=== PATIENT | female | born 1955 | race Caucasian/White ===

== ENCOUNTER 2018-03-10 09:34 | Emergency (ER) | payer MEDICARE, MEDICAID ==
[~2018-03-10] VITALS: Ht 172.7 cm; Wt 114.0 kg
[~2018-03-10 09:34] MED LIST: ACET-812 PO; ATOR20TA PO; BENZ1TAB7 PO; BUPR200T10 PO; CALC1TAB PO; CYCL-1 PO; DOCU100C40 PO; HYDR-569 PO; LIDO700A5 TOP; NAPR220T67 PO; NICO-687 TD; ONDA8TAB9 PO; OXYC-145 PO; PALI3TAB5 PO; QUET400T12 PO; UMEC1DIS PO
[2018-03-10 09:37] VITALS: BP 134/62
[2018-03-10] MEDS ORDERED: ketorolac trometh. 30mg/ml inj. IM ONE (10:00)
[2018-03-10] MEDS ORDERED: TRAM50TA2 PO (10:04)
[2018-03-10] MEDS ORDERED: GABA-530 PO (10:04)
== END 2018-03-10 10:16 | disposition home or self-care (01) ==
LOC: ER 09:34
DX: M54.5 Low back pain (principal); E78.00 Pure hypercholesterolemia, unspecified; I10 Essential (primary) hypertension; E11.9 Type 2 diabetes mellitus without complications; G89.29 Other chronic pain; Z60.2 Problems related to living alone; Z79.899 Other long term (current) drug therapy; Z88.8 Allergy status to other drugs, medicaments and biological substances
CPT/HCPCS: 96372; 99284; J1885

== ENCOUNTER 2018-03-20 13:32 | Emergency (ER) | payer MEDICARE, MEDICAID ==
[~2018-03-20] VITALS: Ht 172.7 cm; Wt 100.0 kg
[~2018-03-20 13:32] MED LIST changes: +GABA-530 PO; +TRAM50TA2 PO
[2018-03-20 13:41] VITALS: BP 136/81
[2018-03-20] MEDS ORDERED: GABA100C PO (15:16)
[2018-03-20] MEDS ORDERED: TRAM50TA2 PO (15:16)
== END 2018-03-20 15:25 | disposition home or self-care (01) ==
LOC: ER 13:33
DX: M54.5 Low back pain (principal); G89.29 Other chronic pain; E78.00 Pure hypercholesterolemia, unspecified; I10 Essential (primary) hypertension; E11.9 Type 2 diabetes mellitus without complications; Z86.73 Personal history of transient ischemic attack (TIA), and cerebral infarction without residual deficits; Z90.49 Acquired absence of other specified parts of digestive tract; Z60.2 Problems related to living alone; Z88.8 Allergy status to other drugs, medicaments and biological substances; Z88.5 Allergy status to narcotic agent; Z79.899 Other long term (current) drug therapy
CPT/HCPCS: 99283

== ENCOUNTER 2018-12-29 17:42 | Emergency (ER) | payer MEDICARE, MEDICAID ==
[~2018-12-29] VITALS: Ht 172.7 cm; Wt 110.5 kg
[~2018-12-29 17:42] MED LIST changes: +GABA100C PO; +HYDR-4383 PO; -HYDR-569 PO; -TRAM50TA2 PO
[2018-12-29 18:53] LABS: BASOPHILS % (AUTO) 0.2 % (0-1); EOSINOPHILS % (AUTO) 0.1 % (0-6); HEMOGLOBIN 12.5 g/dl (12.0-16.0); MEAN CORPUSCULAR HGB CONC 34.7 g/dL (33.0-36.5); MEAN CORPUSCULAR VOLUME 86.6 FL (78-98); MEAN PLATELET VOLUME 7.8 FL (7.4-10.4); MONOCYTES # (AUTO) 0.6 X10'3 (0-0.9); MONOCYTES % (AUTO) 5.9 % (2-12); NEUTROPHILS # (AUTO) 7.8 X10'3 (1.8-7.7); NEUTROPHILS % (AUTO) 82.8 % (42-75); PLATELET COUNT 274 X10'3 (140-440); RED BLOOD COUNT 4.16 X10'6 (4.20-5.60); RED CELL DISTRIBUTION WIDTH 15.2 % (11.5-14.5); WHITE BLOOD COUNT 9.4 X10'3 (4.5-11.0)
--- NOTE | 2018-12-29 19:34 | NUR ---
COMMUNITY MENTAL HEALTH SOCIAL WORKER FOR BED 1 NAME: AURELIANO NEFF PHONE # Addendum: 12/30/18 at 1252 by BOBBI SECONDARY PHONE # [phone]
[2018-12-29 19:51] LABS: URINE AMPHETAMINE SCREEN NEGATIVE (Neg); URINE BARBITUATE SCREEN NEGATIVE (Neg); URINE BENZODIAZEPINES SCREEN NEGATIVE (Neg); URINE CANNABINOID SCREEN NEGATIVE (Neg); URINE COCAINE SCREEN NEGATIVE (Neg); URINE METHADONE SCREEN NEGATIVE (Neg); URINE OPIATE SCREEN NEGATIVE (Neg); URINE PHENCYCLIDINE SCREEN NEGATIVE (Neg)
[2018-12-29 19:55] LABS: ALANINE AMINOTRANSFERASE 42 U/L (12-78); ALBUMIN 3.5 G/DL (3.4-5.0); ALKALINE PHOSPHATASE 83 IU/L (46-116); ANION GAP 13 (8-16); ASPARTATE AMINO TRANSFERASE 37 U/L (10-37); BILIRUBIN,TOTAL 0.5 MG/DL (0.1-1.0); BLOOD UREA NITROGEN 9 MG/DL (7-18); BUN/CREATININE RATIO 8.5 (6.6-38.0); CALCIUM 9.7 MG/DL (8.5-10.1); CHLORIDE 105 MMOL/L (99-107); CREATININE 1.06 MG/DL (0.40-0.90); ETHANOL < 0.010 GM/DL (0.0-0.010); GLUCOSE 141 MG/DL (70-104); POTASSIUM 3.5 MMOL/L (3.5-5.1); SODIUM 141 MMOL/L (135-145); TOTAL CARBON DIOXIDE 23.5 MMOL/L (24-32); eGFR 52 ML/MIN
[2018-12-29] MEDS ORDERED: LORazepam 2 mg/ml vial IM ONE ×2 (20:55)
--- NOTE | 2018-12-29 21:13 | NUR ---
Jael reyna in [facility] - 12/30/18 at 0004 by ONUR report given to javad landry
[2018-12-29 21:31] LABS: CLARITY,URINE CLEAR (Clear); COLOR,URINE YELLOW (Yellow); GLUCOSE, URINE NEGATIVE (Neg); KETONES,URINE NEGATIVE (Neg); LEUKOCYTE ESTERASE ,URINE NEGATIVE (Neg); NITRITES, URINE NEGATIVE (Neg); OCCULT BLOOD,URINE SMALL (Neg); PROTEIN,URINE NEGATIVE (Neg); UROBILINOGEN,URINE 0.2 E.U/dL (0.2-1.0)
[2018-12-29 21:34] LABS: UA COLLECTION TYPE STRAIGHT CATH
[2018-12-29 21:39] LABS: BACTERIA,URINE FEW /HPF (Neg); RBC,URINE 0-2 /HPF (0-2); SQUAMOUS EPITHELIAL CELL,UR FEW /LPF (FEW); WBC,URINE 0-4 /HPF (0-4)
[2018-12-29] MEDS ORDERED: haloperidol lactate 5mg/ml inj IM ONE (21:40)
--- NOTE | 2018-12-29 23:58 | NUR ---
PT MOVED FROM ED BED 1 TO ED BED H16 FOR CLOSER OBSERVATION. PT TO BE TAKEN TO OVERFLOW AND TELE-PSYCHED THERE.
--- NOTE | 2018-12-30 02:10 | NUR ---
SOC telepsych initiated.
--- NOTE | 2018-12-30 02:23 | NUR ---
Pt up from bed indicating she needed to go to the bathroom. She assisted as she does not appear steady on her feet. At about [address]% [address] way there, pt stated, "No, I don't have to go." She returned readily to bed. Additionally, pt appears to be responding to internal stimuli AEB her talking when none are present. Will continue to monitor.
--- NOTE | 2018-12-30 02:57 | NUR ---
Unsteadiness with slight lurching forward, lack of motor coordination and mild uncontrolled facial/tongue movement noted; appears neurological. Pt continues to be restless and is wide awake.
--- NOTE | 2018-12-30 03:39 | NUR ---
Discussed pt's dystonic type movements with Dr Patel; new order received for Izzy.
[2018-12-30] MEDS ORDERED: benztropine 1mg tablet PO ONE (03:40)
--- NOTE | 2018-12-30 04:40 | NUR ---
Pt status provided Dr Johnston, Psychiatrist SOC in preparation of psychosocial assessment.
--- NOTE | 2018-12-30 04:42 | NUR ---
Pt engaged in SOC telepsych assessment.
--- NOTE | 2018-12-30 05:15 | NUR ---
SOC Psychiatrist Dr Johnston f/u indicating she will be recommending pt undergo a neurological assessment d/t motor activity. Additionally Dr Johnston stated pt does not meet criteria for a 5150 hold at this time.
[2018-12-30] MEDS ORDERED: CYCL-394 PO (07:50)
[2018-12-30] MEDS ORDERED: ATOR20TA PO (07:50)
[2018-12-30] MEDS ORDERED: DOCU100C40 PO (07:50)
[2018-12-30] MEDS ORDERED: BUPR100T16 PO (07:50)
[2018-12-30] MEDS ORDERED: PER5325T PO (07:50)
[2018-12-30] MEDS ORDERED: BENZ1TAB7 PO (07:50)
[2018-12-30] MEDS ORDERED: UMEC1DIS (07:50)
[2018-12-30] MEDS ORDERED: GABA-530 PO (07:50)
[2018-12-30] MEDS ORDERED: PALI6TAB PO (07:50)
--- NOTE | 2018-12-30 07:57 | NUR ---
Patient up to bathroom, unsteady on feet, rocking as sitting on bed, lip smacking, exhibiting signs of possible tardive dyskinesia. NAD, waiting for breakfast.
[2018-12-30] MEDS ORDERED: oxyCODONE/APAP 5-325mg tablet PO PRN (08:30)
[2018-12-30] MEDS ORDERED: acetaminophen 325mg tablet PO PRN (08:30)
[2018-12-30] MEDS ORDERED: cyclobenzaprine 10mg tablet PO PRN (08:30)
[2018-12-30] MEDS ORDERED: ipratropium 0.5 MG/2.5ML nebule IH PRN (08:40)
[2018-12-30] MEDS ORDERED: albuterol 2.5 MG/3 ML nebule NEB PRN (08:40)
[2018-12-30] MEDS ORDERED: LORazepam 2 mg/ml vial IM ONE (10:00)
--- NOTE | 2018-12-30 10:00 | NUR ---
The patient has been awake and restless after eating breakfast. She was given IM medications and her regular morning meds. She is able to get up to bathroom and converse with nursing staff. She is responding at times to internal stimuli and admits to hearing voices. She is in no acute distress at this time.
[2018-12-30] MEDS ORDERED: PALIPERIDONE 3 MG TAB.ER.24 PO SCH (10:05)
[2018-12-30] MEDS: calcium carbonate/vitamin D3 tablet PO SCH ×2 (10:06→20:08)
[2018-12-30] MEDS: docusate sod 100mg capsule PO SCH ×2 (10:27→20:08)
[2018-12-30] MEDS: benztropine 1mg tablet PO SCH ×2 (10:27→20:08)
[2018-12-30] MEDS: gabapentin 100mg capsule PO SCH ×2 (10:27→16:50)
--- NOTE | 2018-12-30 11:20 | NUR ---
patient's caregiver here and was very reluctant to leave her bag at the nurse's station also the caregiver was aked to please leave her visitors id on her person to allow for identification; she held it in her hand
--- NOTE | 2018-12-30 11:31 | NUR ---
CALLED PHARMACY AND SPOKE TO ALEKSANDR: PATIENT DOES NOT HAVE MEDICATION STORED IN PHARMACY PATIENT SIGNED FOR RETURN OF PERSONAL BELONGINGS INCLUDING BEYER
--- NOTE | 2018-12-30 11:35 | NUR ---
caregiver up in front of nurses station: I asked her if she needed any help; she said "no" I asked her to please return to the patient's room because I needed to make a phone call regarding another patient. the caregiver did not return to the patient's room
--- NOTE | 2018-12-30 11:37 | NUR ---
ERROR: PATIENT IS NOT BEING DISCHARGED I CHECKED THE NURSES STATION WITH JULIANNE GARCIA: PATIENT HAS NO MEDICATION IN THE FACILITY JOSE WHITAKER TRIAGED THE PATIENT AND THE PATIENT ARRIVED VIA EMS WITH NO MEDICATION
--- NOTE | 2018-12-30 12:13 | NUR ---
PT'S AVIONICS ELECTRONICS TECHNICIAN, AURELIANO NEFF,, CAME TO VISIT PT. SPOKE WITH TIFFANI RN, RON RN AND CATHLEEN PCT REGARDING PT'S BAG OF MEDICATIONS; STATING THAT THEY ARE MISSING AND THAT SHE GAVE THE BAG TO THE [facility] EMT'S AT TIME OF TRANSPORT TO THE HOSPITAL. THIS PUBLISHING DIRECTOR RECEIVED THE PT IN ER1, NO "TOLBERT" BAG OF MEDICATIONS WAS SEEN UPON ARRIVAL OR WHEN EMT'S LEFT. TRIED TO EXPLAIN TO MS NEFF THAT THERE WAS NO BAG OF MEDICATIONS PRESENTED TO ME, THAT I ASKED THE PT IF SHE HAD A LIST OF HER MEDICATIONS AND ATTEMPTED TO VERIFY MEDICATIONS FROM PREVIOUS EMR BUT WAS UNABLE DUE TO PT NOT BEING ABLE TO TELL WHAT MEDICATIONS SHE IS ON. I EXPLAINED TO MS NEFF THAT IF I HAD RECEIVED A BAG OF MEDICATIONS, I WOULD HAVE LOGGED THEM AND TAKEN THEM TO THE PHARMACY. JULIANNE MG CALLED THE PHARMACY TO VERIFY IF THEY HAD RECEIVED A "TOLBERT" BAG OF MEDICATIONS FOR THE PT AND WAS TOLD THAT THEY HAD NOT. THE AMBULANCE [facility]OCKERS WERE CHECKED AND THERE WAS NO BAG OF MEDICATIONS WITH THE PT'S OTHER BELONGING. OVERFLOW WAS CHECKED AND NO BAG WAS PRESENT AND THERE WAS NO MENTION OF MEDICATION ON THE PT'S BELONGINGS LIST IN THE CHART. MS NEFF INSISTS THAT SHE PERSONALLY GAVE A BAG OF MEDICATIONS TO THE EMT'S, [facility] EMS WAS CALLED AND THERE HAVE NO RECOLLECTIONS OF A MEDICATION BAG GIVEN. PUBLISHING DIRECTOR REQUESTED MS NEFF'S CONTACT #'S AND STATED THAT WE WOULD CONTINUE TO SERCH FOR THE MEDICATION BAG AND WOULD CALL WHEN AND IF FOUND. MS NEFF BECAME VERY ANGRY, INSISTING THAT WE HAD THE MEDICATIONS AND STATING "YOU ARE GOING TO BE IN BIG TROUBLE."
[2018-12-30] MEDS ORDERED: buPROPion 100mg tablet PO SCH (12:30)
--- NOTE | 2018-12-30 15:26 | NUR ---
Patient restless and c/o chronic lower back pain 10/10 aching. [facility]ocet. [facility]
[2018-12-30] MEDS ORDERED: gabapentin 100mg capsule PO SCH (16:00)
--- NOTE | 2018-12-30 16:00 | NUR ---
Darrick from [facility] at bedside to evaluate for 5150 criteria.
--- NOTE | 2018-12-30 16:30 | NUR ---
Placed on a [address] [facility]. History reveals patient is Hepatitis C positive.
--- NOTE | 2018-12-30 17:23 | NUR ---
Patient settled down and rested after getting pain medication. No distress, calm and cooperative lying on bed.
--- NOTE | 2018-12-30 18:32 | NUR ---
Patient resting comfortably on hospital bed, is A&O x3 and DOYLE. She tells me she is anxious and feels crazy. She does not respect boundries and continues to cross the curtain into another patient's space, she is easily redirected. I will continue to monitor.
--- NOTE | 2018-12-30 19:23 | NUR ---
[facility] kareem and they will be accepting patient tonight. I gave msg to Dr. Haque for discharge.
[2018-12-30] MEDS ORDERED: benztropine 1mg tablet PO SCH (20:00)
[2018-12-30] MEDS ORDERED: docusate sod 100mg capsule PO SCH (20:00)
[2018-12-30] MEDS ORDERED: calcium carbonate/vitamin D3 tablet PO SCH (20:00)
--- NOTE | 2018-12-30 20:39 | NUR ---
Patient being taken to [facility]
[2018-12-30 20:42] VITALS: BP 126/70
[2018-12-30] MEDS ORDERED: atorvastatin 20mg tablet PO SCH (21:00)
[2018-12-30] MEDS ORDERED: QUET-1 PO (22:42)
[2018-12-30] MEDS ORDERED: lidocaine TD (22:46)
[2018-12-30] MEDS ORDERED: HYDR-3965 PO (22:52)
[2018-12-30] MEDS ORDERED: NAPR-56 PO (23:05)
[2018-12-30] MEDS ORDERED: NICO-687 TOP (23:08)
[2018-12-30] MEDS ORDERED: ONDA8TAB6 PO (23:11)
[2018-12-31] MEDS ORDERED: PALIPERIDONE 3 MG TAB.ER.24 PO SCH ×2 (08:00→10:04)
[2018-12-31] MEDS ORDERED: OMEP40CA37 PO (13:39)
[2018-12-31] MEDS ORDERED: PRAV80TA3 PO (13:39)
== END 2018-12-30 20:45 ==
LOC: ER 17:43
DX: R41.82 Altered mental status, unspecified (principal); F41.9 Anxiety disorder, unspecified; F32.9 Major depressive disorder, single episode, unspecified; R45.1 Restlessness and agitation; R41.0 Disorientation, unspecified; E78.00 Pure hypercholesterolemia, unspecified; I10 Essential (primary) hypertension; E11.9 Type 2 diabetes mellitus without complications; G89.29 Other chronic pain; Z86.73 Personal history of transient ischemic attack (TIA), and cerebral infarction without residual deficits; Z90.49 Acquired absence of other specified parts of digestive tract; Z60.2 Problems related to living alone; Z88.8 Allergy status to other drugs, medicaments and biological substances; Z79.899 Other long term (current) drug therapy
CPT/HCPCS: 36415; 70450; 80053; 80305; 80320; 81001; 84443; 85025; 93005; 96372; 99285; J1630; J2060; P9612

== ENCOUNTER 2018-12-30 20:00 | Inpatient (IN) | payer MEDICARE, MEDICAID | END 2019-01-14 11:50 | disposition home or self-care (01) | LOC: ADULT MH 20:00 | DX: F25.0 Schizoaffective disorder, bipolar type (principal); Z86.73 Personal history of transient ischemic attack (TIA), and cerebral infarction without residual deficits; F03.90 Unspecified dementia, unspecified severity, without behavioral disturbance, psychotic disturbance, mood disturbance, and anxiety; E78.5 Hyperlipidemia, unspecified ==

== ENCOUNTER 2020-03-08 11:23 | Emergency (ER) | payer MEDICARE, MEDICAID ==
[~2020-03-08] VITALS: Ht 172.7 cm; Wt 101.4 kg
[~2020-03-08 11:23] MED LIST changes: -ATOR20TA PO; +BENZ0.5T4 PO; -BENZ1TAB7 PO; +BUPR100T7 PO; -BUPR200T10 PO; -CALC1TAB PO; +CHLO473M2 MM; -CYCL-1 PO; +DOCU-329 PO; -DOCU100C40 PO; -GABA-530 PO; -GABA100C PO; +HYDR-3686 PO; -HYDR-4383 PO; -LIDO700A5 TOP; +MIRA25TA PO; +NAPR-56 PO; -NAPR220T67 PO; -NICO-687 TD; +NYSPWD TP; +OLAN2.5T28 PO; +OLAN5TAB29 PO; -ONDA8TAB9 PO; -OXYC-145 PO; -PALI3TAB5 PO; +PANT40TA4 PO; +POLY15DR31 RIGHTEYE; -QUET400T12 PO; +TRAM50TA2 PO; +TRAZ-256 PO
--- NOTE | 2020-03-08 12:08 | NUR ---
Pt. walked back to bed 24, gait steady.
[2020-03-08 12:12] LABS: BASOPHILS % (AUTO) 0.4 % (0-1); EOSINOPHILS # (AUTO) 0.1 X10'3 (0-0.9); EOSINOPHILS % (AUTO) 0.8 % (0-6); HEMATOCRIT 37.7 % (35.0-45.0); HEMOGLOBIN 12.4 g/dl (12.0-16.0); LYMPHOCYTES # (AUTO) 1.1 X10'3 (1.1-4.8); LYMPHOCYTES % (AUTO) 14.3 % (21-51); MEAN CORPUSCULAR HEMOGLOBIN 28.8 PG (27.0-31.0); MEAN CORPUSCULAR VOLUME 87.1 FL (78-98); MEAN PLATELET VOLUME 7.2 FL (7.4-10.4); MONOCYTES # (AUTO) 0.8 X10'3 (0-0.9); MONOCYTES % (AUTO) 9.4 % (2-12); NEUTROPHILS % (AUTO) 75.1 % (42-75); PLATELET COUNT 201 X10'3 (140-440); RED BLOOD COUNT 4.32 X10'6 (4.20-5.60); RED CELL DISTRIBUTION WIDTH 14.2 % (11.5-14.5)
[2020-03-08 12:28] LABS: ALANINE AMINOTRANSFERASE 16 U/L (12-78); ALBUMIN 2.9 G/DL (3.4-5.0); ALBUMIN/GLOBULIN RATIO 0.9 (1.1-1.5); ALKALINE PHOSPHATASE 60 IU/L (46-116); ANION GAP 8 (8-16); ASPARTATE AMINO TRANSFERASE 23 U/L (10-37); BILIRUBIN,TOTAL 0.4 MG/DL (0.1-1.0); BLOOD UREA NITROGEN 11 MG/DL (7-18); BUN/CREATININE RATIO 11.7 (6.6-38.0); CALCIUM 8.2 MG/DL (8.5-10.1); CHLORIDE 104 MMOL/L (99-107); CREATININE 0.94 MG/DL (0.40-0.90); GLUCOSE 127 MG/DL (70-104); POTASSIUM 3.6 MMOL/L (3.5-5.1); SODIUM 138 MMOL/L (135-145); TOTAL CARBON DIOXIDE 25.6 MMOL/L (24-32); TOTAL PROTEIN 6.2 G/DL (6.4-8.2); eGFR 60 ML/MIN
[2020-03-08 12:36] LABS: ETHANOL < 0.010 GM/DL (0.0-0.010)
--- NOTE | 2020-03-08 13:34 | NUR ---
Dietary orders input per verbal order from [place] [facility]; meal request faxed.
[2020-03-08] MEDS ORDERED: OLAN5TAB29 PO (14:45)
[2020-03-08] MEDS ORDERED: HYDR-3686 PO (14:45)
[2020-03-08] MEDS ORDERED: TRAZ-256 PO ×2 (14:45→17:32)
[2020-03-08] MEDS ORDERED: NAPR-56 PO ×2 (14:45→17:32)
[2020-03-08] MEDS ORDERED: DOCU-329 PO (14:45)
[2020-03-08] MEDS ORDERED: MIRA25TA PO (14:45)
[2020-03-08] MEDS ORDERED: TRAM50TA2 PO ×2 (14:45→17:32)
[2020-03-08] MEDS ORDERED: PANT40TA4 PO (14:45)
[2020-03-08] MEDS ORDERED: BENZ0.5T4 PO ×2 (14:45→17:23)
[2020-03-08] MEDS ORDERED: OLAN2.5T28 PO ×2 (14:45)
[2020-03-08] MEDS ORDERED: BUPR100T7 PO (14:45)
--- NOTE | 2020-03-08 15:31 | NUR ---
Patient up to bathroom, urine sent to lab. Patient is calm and cooperative.
[2020-03-08 15:51] LABS: CLARITY,URINE SLIGHTLY CLOUDY (Clear); COLOR,URINE STRAW (Yellow); GLUCOSE, URINE NEGATIVE (Neg); KETONES,URINE NEGATIVE (Neg); LEUKOCYTE ESTERASE ,URINE NEGATIVE (Neg); NITRITES, URINE NEGATIVE (Neg); OCCULT BLOOD,URINE MODERATE (Neg); PROTEIN,URINE NEGATIVE (Neg); UA COLLECTION TYPE VOIDED; UROBILINOGEN,URINE 0.2 E.U/dL (0.2-1.0)
[2020-03-08 15:53] LABS: URINE AMPHETAMINE SCREEN NEGATIVE (Neg); URINE BARBITUATE SCREEN NEGATIVE (Neg); URINE BENZODIAZEPINES SCREEN NEGATIVE (Neg); URINE CANNABINOID SCREEN NEGATIVE (Neg); URINE COCAINE SCREEN NEGATIVE (Neg); URINE METHADONE SCREEN NEGATIVE (Neg); URINE OPIATE SCREEN NEGATIVE (Neg); URINE PHENCYCLIDINE SCREEN NEGATIVE (Neg)
[2020-03-08 16:01] LABS: BACTERIA,URINE FEW /HPF (Neg); RBC,URINE 0-2 /HPF (0-2); SQUAMOUS EPITHELIAL CELL,UR MODERATE /LPF (FEW); WBC,URINE 0-4 /HPF (0-4)
[2020-03-08 16:22] VITALS: BP 119/62
[2020-03-08] MEDS ORDERED: myrbetriq PO (17:23)
[2020-03-08] MEDS ORDERED: BUPR100T6 PO (17:23)
[2020-03-08] MEDS ORDERED: BUPROPION PO (17:23)
[2020-03-08] MEDS ORDERED: DOCU250C4 PO (17:23)
[2020-03-08] MEDS ORDERED: olanzapine PO ×2 (17:32)
[2020-03-08] MEDS ORDERED: OLAN5TAB5 PO (17:32)
[2020-03-08] MEDS ORDERED: PANT-47 PO (17:32)
== END 2020-03-08 16:26 ==
LOC: ER 11:23
DX: F32.9 Major depressive disorder, single episode, unspecified (principal); E78.00 Pure hypercholesterolemia, unspecified; Z90.49 Acquired absence of other specified parts of digestive tract; Z60.2 Problems related to living alone; Z90.89 Acquired absence of other organs; Z98.890 Other specified postprocedural states; Z88.8 Allergy status to other drugs, medicaments and biological substances; Z79.899 Other long term (current) drug therapy
CPT/HCPCS: 36415; 80053; 80305; 80320; 81001; 84443; 85025; 99285

== ENCOUNTER 2020-05-02 12:54 | Emergency (ER) | payer MEDICARE, MEDICAID ==
[~2020-05-02] VITALS: Ht 172.7 cm; Wt 110.5 kg
[~2020-05-02 12:54] MED LIST changes: +BUPR100T6 PO; +BUPROPION PO; -CHLO473M2 MM; -DOCU-329 PO; +DOCU250C4 PO; -NYSPWD TP; +OLAN5TAB5 PO; +PANT-47 PO; -POLY15DR31 RIGHTEYE; +myrbetriq PO; +olanzapine PO
[2020-05-02 12:59] VITALS: BP 130/86
[2020-05-02 14:03] LABS: CLARITY,URINE CLOUDY (Clear); COLOR,URINE YELLOW (Yellow); GLUCOSE, URINE NEGATIVE (Neg); KETONES,URINE NEGATIVE (Neg); LEUKOCYTE ESTERASE ,URINE LARGE (Neg); NITRITES, URINE POSITIVE (Neg); OCCULT BLOOD,URINE SMALL (Neg); PH,URINE 6.5 (4.8-8.0); PROTEIN,URINE NEGATIVE (Neg); UROBILINOGEN,URINE 0.2 E.U/dL (0.2-1.0)
[2020-05-02 14:09] LABS: UA COLLECTION TYPE CLN CATCH MIDSTREAM
[2020-05-02 14:10] LABS: MUCUS STRANDS NONE SEEN /LPF (Neg); SQUAMOUS EPITHELIAL CELL,UR FEW /LPF (FEW)
[2020-05-02 14:11] LABS: BACTERIA,URINE 4+ /HPF (Neg); WBC,URINE TNTC /HPF (0-4)
[2020-05-02] MEDS ORDERED: CEFD300C3 PO (14:21)
--- NOTE | 2020-05-02 14:29 | NUR ---
exam done for yeast infection by Dr Rene
[2020-05-02] MEDS ORDERED: NYST15PO4 TOP (14:31)
[2020-05-03] MEDS ORDERED: ATOR10TA87 PO (19:27)
== END 2020-05-02 14:33 | disposition home or self-care (01) ==
LOC: ER 12:55
DX: N39.0 Urinary tract infection, site not specified (principal); B37.2 Candidiasis of skin and nail; E78.00 Pure hypercholesterolemia, unspecified; F32.9 Major depressive disorder, single episode, unspecified; Z90.89 Acquired absence of other organs; Z98.890 Other specified postprocedural states; Z79.899 Other long term (current) drug therapy
CPT/HCPCS: 81001; 87077; 87088; 87186; 99283

== ENCOUNTER 2020-05-03 17:43 | Emergency (ER) | payer MEDICARE, MEDICAID ==
[~2020-05-03] VITALS: Ht 175.3 cm; Wt 110.5 kg
[~2020-05-03 17:43] MED LIST changes: +CEFD300C3 PO; +NYST15PO4 TOP
[2020-05-03 18:48] LABS: BASOPHILS % (AUTO) 0.5 % (0-1); EOSINOPHILS % (AUTO) 0.3 % (0-6); HEMATOCRIT 39.8 % (35.0-45.0); HEMOGLOBIN 13.2 g/dl (12.0-16.0); LYMPHOCYTES # (AUTO) 1.3 X10'3 (1.1-4.8); LYMPHOCYTES % (AUTO) 18.7 % (21-51); MEAN CORPUSCULAR HEMOGLOBIN 29.5 PG (27.0-31.0); MEAN CORPUSCULAR HGB CONC 33.3 g/dL (33.0-36.5); MEAN CORPUSCULAR VOLUME 88.6 FL (78-98); MEAN PLATELET VOLUME 7.4 FL (7.4-10.4); MONOCYTES # (AUTO) 0.7 X10'3 (0-0.9); MONOCYTES % (AUTO) 9.8 % (2-12); NEUTROPHILS # (AUTO) 4.7 X10'3 (1.8-7.7); NEUTROPHILS % (AUTO) 70.7 % (42-75); PLATELET COUNT 199 X10'3 (140-440); RED BLOOD COUNT 4.49 X10'6 (4.20-5.60); RED CELL DISTRIBUTION WIDTH 14.8 % (11.5-14.5); WHITE BLOOD COUNT 6.7 X10'3 (4.5-11.0)
[2020-05-03 18:58] LABS: CLARITY,URINE SLIGHTLY CLOUDY (Clear); COLOR,URINE YELLOW (Yellow); GLUCOSE, URINE NEGATIVE (Neg); KETONES,URINE NEGATIVE (Neg); LEUKOCYTE ESTERASE ,URINE MODERATE (Neg); NITRITES, URINE NEGATIVE (Neg); OCCULT BLOOD,URINE SMALL (Neg); PH,URINE 5.5 (4.8-8.0); PROTEIN,URINE NEGATIVE (Neg); UROBILINOGEN,URINE 0.2 E.U/dL (0.2-1.0)
[2020-05-03 19:02] LABS: UA COLLECTION TYPE CLN CATCH MIDSTREAM
[2020-05-03 19:04] LABS: BACTERIA,URINE FEW /HPF (Neg); RBC,URINE NONE SEEN /HPF (0-2); SQUAMOUS EPITHELIAL CELL,UR FEW /LPF (FEW)
[2020-05-03 19:06] LABS: ALANINE AMINOTRANSFERASE 21 U/L (12-78); ALBUMIN 3.7 G/DL (3.4-5.0); ALBUMIN/GLOBULIN RATIO 1.1 (1.1-1.5); ALKALINE PHOSPHATASE 76 IU/L (46-116); ANION GAP 11 (8-16); ASPARTATE AMINO TRANSFERASE 14 U/L (10-37); BILIRUBIN,TOTAL 0.6 MG/DL (0.1-1.0); BLOOD UREA NITROGEN 9 MG/DL (7-18); BUN/CREATININE RATIO 9.3 (6.6-38.0); CALCIUM 8.6 MG/DL (8.5-10.1); CHLORIDE 104 MMOL/L (99-107); CREATININE 0.97 MG/DL (0.40-0.90); GLUCOSE 86 MG/DL (70-104); POTASSIUM 3.8 MMOL/L (3.5-5.1); SODIUM 141 MMOL/L (135-145); TOTAL CARBON DIOXIDE 26.1 MMOL/L (24-32); eGFR 57 ML/MIN
[2020-05-03 19:06] LABS: URINE AMPHETAMINE SCREEN NEGATIVE (Neg); URINE BARBITUATE SCREEN NEGATIVE (Neg); URINE BENZODIAZEPINES SCREEN NEGATIVE (Neg); URINE CANNABINOID SCREEN NEGATIVE (Neg); URINE COCAINE SCREEN NEGATIVE (Neg); URINE METHADONE SCREEN NEGATIVE (Neg); URINE OPIATE SCREEN NEGATIVE (Neg); URINE PHENCYCLIDINE SCREEN NEGATIVE (Neg)
[2020-05-03 19:15] LABS: ETHANOL < 0.010 GM/DL (0.0-0.010)
[2020-05-03] MEDS ORDERED: ATOR10TA87 PO (19:27)
[2020-05-03] MEDS: sulfamethoxazole/trimethoprim DS (800/160mg) tablet PO SCH ×2 (19:36→21:52)
--- NOTE | 2020-05-03 19:46 | NUR ---
Patient brought from [facility] ER. Patient ambulatory with walker. Patient states she is upset today because she had to let her it solutions architect go "because she was drunk." Patient then tells this typewriter ribbon winder that she has to go to the bathroom to void. Patient started to ambulate, she was reminded to go back and get her walker. Patient did comply. Patients gait was normal without the walker, no signs of pain.
--- NOTE | 2020-05-03 20:30 | NUR ---
pt packet faxed to [facility]
[2020-05-03] MEDS ORDERED: phenazopyridine 100mg tablet PO ONE ×2 (21:30→21:40)
--- NOTE | 2020-05-03 21:30 | NUR ---
Patient frequently ambulates to bathroom to void in small amounts.
[2020-05-03] MEDS ORDERED: acetaminophen 325mg tablet PO ONE (21:35)
--- NOTE | 2020-05-03 22:12 | NUR ---
Pyridium and APAP given for bladder and UTI pain. Patient is frequently up to the commode to void small amounts. Burning is present with urination. In addition patient was given her Deptra DS.
[2020-05-03] MEDS ORDERED: OLANZapine 2.5MG tablet PO SCH (22:35)
[2020-05-03] MEDS ORDERED: traZODone 50mg tablet PO ONE (22:35)
[2020-05-03] MEDS ORDERED: traZODone 50mg tablet PO SCH (22:35)
[2020-05-03] MEDS ORDERED: OLANZapine 2.5MG tablet PO ONE (22:35)
--- NOTE | 2020-05-04 00:51 | NUR ---
pt up out of bed to bathroom via rollar walker. steady gait . [facility] as patient has be ambulating to the bathroom frequently.
--- NOTE | 2020-05-04 01:10 | NUR ---
PT VOIDED 150 ML URINE SLIGHTY REDISH -
--- NOTE | 2020-05-04 01:53 | NUR ---
Patient up to bathroom to void. Patient slept for approximately 30 minutes prior to this. Patient ambulates with use of walker, normal gait.
--- NOTE | 2020-05-04 02:45 | NUR ---
Patient is sleeping quietly, low fowlers in bed. In view from nursing station.
--- NOTE | 2020-05-04 04:39 | NUR ---
Patient is up to void in bathroom, she had soiled her scrub bottom with urine. Patient was given clean scrubs and bedding.
--- NOTE | 2020-05-04 05:59 | NUR ---
Patient is awake, up to bathroom to void once again. She ambulates to bed without problem.
--- NOTE | 2020-05-04 06:30 | NUR ---
PT IS RESTING
[2020-05-04 07:00] VITALS: BP 116/77
[2020-05-04] MEDS ORDERED: naproxen 500mg tablet PO SCH (07:30)
--- NOTE | 2020-05-04 07:30 | NUR ---
PT IS RESTING
[2020-05-04] MEDS ORDERED: phenazopyridine 100mg tablet PO SCH (08:00)
[2020-05-04] MEDS ORDERED: pantoprazole 40mg Tablet.DR PO SCH (08:00)
[2020-05-04] MEDS ORDERED: phenazopyridine 100mg tablet PO ONE (08:00)
[2020-05-04] MEDS ORDERED: buPROPion SR 100mg tab PO SCH (08:00)
[2020-05-04] MEDS ORDERED: benztropine 1mg tablet PO SCH (08:00)
[2020-05-04] MEDS ORDERED: atorvastatin 10mg tablet PO SCH (08:00)
[2020-05-04] MEDS: sulfamethoxazole/trimethoprim DS (800/160mg) tablet PO SCH (08:06)
--- NOTE | 2020-05-04 08:30 | NUR ---
PT IS RESTING
--- NOTE | 2020-05-04 09:37 | NUR ---
PT IS RESTING
[2020-05-04] MEDS ORDERED: SULF1TAB49 PO (10:54)
[2020-05-04] MEDS ORDERED: traZODone 50mg tablet PO SCH (21:00)
[2020-05-04] MEDS ORDERED: OLANZAPINE 5 MG TABLET PO SCH (21:00)
== END 2020-05-04 11:29 | disposition home or self-care (01) ==
LOC: ER 17:43
DX: F32.9 Major depressive disorder, single episode, unspecified (principal); R45.851 Suicidal ideations; N39.0 Urinary tract infection, site not specified; E78.00 Pure hypercholesterolemia, unspecified; Z87.440 Personal history of urinary (tract) infections; Z90.89 Acquired absence of other organs; Z98.890 Other specified postprocedural states; Z60.2 Problems related to living alone; Z88.8 Allergy status to other drugs, medicaments and biological substances; Z79.899 Other long term (current) drug therapy
CPT/HCPCS: 36415; 80053; 80305; 80320; 81001; 84443; 85025; 99284

== ENCOUNTER 2020-05-06 08:12 | Emergency (ER) | payer MEDICARE, MEDICAID ==
[~2020-05-06] VITALS: Ht 172.7 cm; Wt 110.0 kg
[~2020-05-06 08:12] MED LIST changes: -ACET-812 PO; +ATOR10TA87 PO; -BUPR100T7 PO; -BUPROPION PO; -CEFD300C3 PO; -DOCU250C4 PO; -HYDR-3686 PO; -MIRA25TA PO; -NYST15PO4 TOP; -OLAN2.5T28 PO; -OLAN5TAB29 PO; -PANT40TA4 PO; +SULF1TAB49 PO; -TRAM50TA2 PO; -UMEC1DIS PO; -myrbetriq PO; -olanzapine PO
--- NOTE | 2020-05-06 08:13 | NUR ---
patient placed on cardiac rn.
--- NOTE | 2020-05-06 08:38 | NUR ---
Called poison control spoke with Cindy,recommending: asa,alcohol,tylenol,cmp level and to watch for agitation,hyperthermia,activated charcoal if becomes sleepy.Will inform Dr. Bhakta.
--- NOTE | 2020-05-06 08:43 | NUR ---
Dr. Bhakta aware about poison control recommendations.
[2020-05-06 12:46] VITALS: BP 137/77
== END 2020-05-06 12:48 | disposition home or self-care (01) ==
LOC: ER 08:13
DX: T14.91XA Suicide attempt, initial encounter (principal); F32.9 Major depressive disorder, single episode, unspecified; E78.00 Pure hypercholesterolemia, unspecified; R42 Dizziness and giddiness; Z90.89 Acquired absence of other organs; Z98.890 Other specified postprocedural states; Z79.899 Other long term (current) drug therapy
CPT/HCPCS: 93005; 99284

== ENCOUNTER 2020-05-14 16:32 | Emergency (ER) | payer MEDICARE, MEDICAID ==
[~2020-05-14] VITALS: Ht 172.7 cm; Wt 82.0 kg
[~2020-05-14 16:32] MED LIST changes: -SULF1TAB49 PO
--- NOTE | 2020-05-14 17:28 | NUR ---
pt was brought in to er by sister she asked her sister to bring her in. she said she started hearing voices this morning she has pych history but this is the first time hearing voices says it is just a jumbled mess and can not make anything out but says it sound religus. she also says she is having suicidal thougth and if she would try it would by by taking pills. she is calm and following directions at this time
--- NOTE | 2020-05-14 19:00 | NUR ---
PT GAVE URINE, SENT TO LAB. BELONGINGS INVENTORIED, MED REC COMPLETED
[2020-05-14 19:37] LABS: BASOPHILS % (AUTO) 0.5 % (0-1); EOSINOPHILS % (AUTO) 0.4 % (0-6); HEMATOCRIT 39.5 % (35.0-45.0); HEMOGLOBIN 13.3 g/dl (12.0-16.0); LYMPHOCYTES # (AUTO) 1.8 X10'3 (1.1-4.8); MEAN CORPUSCULAR HEMOGLOBIN 30.1 PG (27.0-31.0); MEAN CORPUSCULAR HGB CONC 33.7 g/dL (33.0-36.5); MEAN CORPUSCULAR VOLUME 89.2 FL (78-98); MEAN PLATELET VOLUME 7.4 FL (7.4-10.4); MONOCYTES # (AUTO) 0.5 X10'3 (0-0.9); MONOCYTES % (AUTO) 6.7 % (2-12); NEUTROPHILS # (AUTO) 5.2 X10'3 (1.8-7.7); NEUTROPHILS % (AUTO) 68.4 % (42-75); PLATELET COUNT 213 X10'3 (140-440); RED BLOOD COUNT 4.43 X10'6 (4.20-5.60); WHITE BLOOD COUNT 7.6 X10'3 (4.5-11.0)
[2020-05-14 19:49] LABS: URINE AMPHETAMINE SCREEN NEGATIVE (Neg); URINE BARBITUATE SCREEN NEGATIVE (Neg); URINE BENZODIAZEPINES SCREEN NEGATIVE (Neg); URINE CANNABINOID SCREEN NEGATIVE (Neg); URINE COCAINE SCREEN NEGATIVE (Neg); URINE METHADONE SCREEN NEGATIVE (Neg); URINE OPIATE SCREEN NEGATIVE (Neg); URINE PHENCYCLIDINE SCREEN NEGATIVE (Neg)
[2020-05-14 19:50] LABS: ALANINE AMINOTRANSFERASE 19 U/L (12-78); ALBUMIN 3.9 G/DL (3.4-5.0); ALBUMIN/GLOBULIN RATIO 1.2 (1.1-1.5); ALKALINE PHOSPHATASE 71 IU/L (46-116); ANION GAP 2 (8-16); ASPARTATE AMINO TRANSFERASE 10 U/L (10-37); BILIRUBIN,TOTAL 0.4 MG/DL (0.1-1.0); BLOOD UREA NITROGEN 13 MG/DL (7-18); CALCIUM 9.2 MG/DL (8.5-10.1); CHLORIDE 105 MMOL/L (99-107); GLUCOSE 97 MG/DL (70-104); POTASSIUM 3.9 MMOL/L (3.5-5.1); SODIUM 138 MMOL/L (135-145); TOTAL CARBON DIOXIDE 30.9 MMOL/L (24-32); TOTAL PROTEIN 7.1 G/DL (6.4-8.2); eGFR 55 ML/MIN
[2020-05-14 20:07] LABS: ETHANOL < 0.010 GM/DL (0.0-0.010)
[2020-05-14] MEDS: benztropine 1mg tablet PO SCH (20:15)
[2020-05-14] MEDS ORDERED: OLANZapine 5mg rapidly disint. tablet PO SCH (21:00)
[2020-05-14] MEDS ORDERED: traZODone 50mg tablet PO SCH (21:00)
--- NOTE | 2020-05-14 21:00 | NUR ---
PT'S SISTER LAKEISHA [phone]. PT'S SISTER CALLED, PT GAVE VERBAL PERMISSION TO TALK WITH SISTER REGARDING HER SITUATION AND CARE. SISTER STATES RON HAS A CAREGIVER IHSS WHO COMES TWICE A DAY BUT HAS BEEN "ACTING STRANGE" AND SENDING "BAZAAR TEXT MESSAGES TO ME." RON SEEMS TO NOT LIKE HER AND THINKS SHE IS STEALING FROM HER POSSIBLY. SHE ALSO STATES SHE FEELS THAT IS WHY RON CAME TO THE HOSPITAL, TO GET AWAY FROM THIS PRODUCTION ESTIMATOR.
[2020-05-14] MEDS ORDERED: acetaminophen 325mg tablet PO PRN (22:30)
--- NOTE | 2020-05-14 22:41 | NUR ---
PT REQUESTS TYLENOL FOR LOWE BACK PAIN, 650MG TYLENOL ORDERED PER PHYSICIAN
--- NOTE | 2020-05-15 00:10 | NUR ---
PT ASLEEP ON BACK, RR 16 EVEN AND UNLABORED
--- NOTE | 2020-05-15 01:30 | NUR ---
PT WAS INCONTINENT OF URINE IN BED, SHEETS CHANGED, PT GIVEN CLEAN SCRUBS
--- NOTE | 2020-05-15 02:59 | NUR ---
PT GOT UP TO USE THE RESTROOM, RETURNED TO BED
--- NOTE | 2020-05-15 04:30 | NUR ---
PT INCONTINENT OF URINE AGAIN, BED LINENS CHANGED, PT GIVEN NEW SCRUBS
[2020-05-15 05:26] VITALS: BP 107/65
--- NOTE | 2020-05-15 05:59 | NUR ---
PACKET FAXED TO [facility]
[2020-05-15] MEDS ORDERED: naproxen 500mg tablet PO SCH (07:30)
[2020-05-15] MEDS: benztropine 1mg tablet PO SCH (07:54)
[2020-05-15] MEDS ORDERED: pantoprazole 40mg Tablet.DR PO SCH (08:00)
[2020-05-15] MEDS ORDERED: atorvastatin 10mg tablet PO SCH (08:00)
[2020-05-15] MEDS ORDERED: buPROPion SR 100mg tab PO SCH (08:00)
--- NOTE | 2020-05-15 08:34 | NUR ---
CALLED TO REPORT CLAIMS O0F SISTER ABOUT IHSS WORKER. A CASE WAS CREATED. DOCUMENTS IN PT. CHART
== END 2020-05-15 10:54 | disposition home or self-care (01) ==
LOC: ER 16:33
DX: F29 Unspecified psychosis not due to a substance or known physiological condition (principal); R45.851 Suicidal ideations; E78.00 Pure hypercholesterolemia, unspecified; F32.9 Major depressive disorder, single episode, unspecified; Z90.49 Acquired absence of other specified parts of digestive tract; Z98.890 Other specified postprocedural states; Z60.2 Problems related to living alone; Z88.8 Allergy status to other drugs, medicaments and biological substances; Z79.899 Other long term (current) drug therapy
CPT/HCPCS: 36415; 80053; 80305; 80320; 84443; 85025; 99284

== ENCOUNTER 2020-05-28 08:35 | Emergency (ER) | payer MEDICARE, MEDICAID ==
[~2020-05-28] VITALS: Ht 175.3 cm; Wt 103.2 kg
[2020-05-28 09:55] LABS: ALANINE AMINOTRANSFERASE 18 U/L (12-78); ALBUMIN 3.5 G/DL (3.4-5.0); ALBUMIN/GLOBULIN RATIO 1.1 (1.1-1.5); ALKALINE PHOSPHATASE 60 IU/L (46-116); ANION GAP -2 (8-16); ASPARTATE AMINO TRANSFERASE 12 U/L (10-37); BILIRUBIN,TOTAL 0.6 MG/DL (0.1-1.0); BLOOD UREA NITROGEN 15 MG/DL (7-18); BUN/CREATININE RATIO 16.1 (5.4-32.0); CALCIUM 8.8 MG/DL (8.5-10.1); CHLORIDE 104 MMOL/L (99-107); CREATININE 0.93 MG/DL (0.60-1.10); GLUCOSE 100 MG/DL (70-104); LIPASE < 50 U/L (73-393); POTASSIUM 3.7 MMOL/L (3.5-5.1); SODIUM 131 MMOL/L (135-145); TOTAL CARBON DIOXIDE 28.6 MMOL/L (24-32); TOTAL PROTEIN 6.8 G/DL (6.4-8.2); eGFR 81 ML/MIN
[2020-05-28 10:00] LABS: BASOPHILS % (AUTO) 0.4 % (0-1); EOSINOPHILS % (AUTO) 0.5 % (0-6); HEMATOCRIT 37.7 % (42.0-52.0); HEMOGLOBIN 12.7 g/dl (14.0-17.9); LYMPHOCYTES # (AUTO) 0.9 X10'3 (1.1-4.8); LYMPHOCYTES % (AUTO) 17.2 % (21-51); MEAN CORPUSCULAR HGB CONC 33.7 g/dL (33.0-36.5); MEAN PLATELET VOLUME 7.6 FL (7.4-10.4); MONOCYTES # (AUTO) 0.7 X10'3 (0-0.9); MONOCYTES % (AUTO) 12.8 % (2-12); NEUTROPHILS # (AUTO) 3.8 X10'3 (1.8-7.7); NEUTROPHILS % (AUTO) 69.1 % (42-75); PLATELET COUNT 162 X10'3 (140-440); RED BLOOD COUNT 4.24 X10'6 (4.70-6.10); RED CELL DISTRIBUTION WIDTH 14.7 % (11.5-14.5); WHITE BLOOD COUNT 5.5 X10'3 (4.5-11.0)
[2020-05-28 10:03] LABS: CLARITY,URINE CLOUDY (Clear); COLOR,URINE YELLOW (Yellow); GLUCOSE, URINE NEGATIVE (Neg); KETONES,URINE NEGATIVE (Neg); LEUKOCYTE ESTERASE ,URINE LARGE (Neg); NITRITES, URINE NEGATIVE (Neg); OCCULT BLOOD,URINE MODERATE (Neg); PROTEIN,URINE NEGATIVE (Neg); UROBILINOGEN,URINE 0.2 E.U/dL (0.2-1.0)
[2020-05-28 10:04] LABS: UA COLLECTION TYPE VOIDED
[2020-05-28 10:18] LABS: URINE AMPHETAMINE SCREEN NEGATIVE (Neg); URINE BARBITUATE SCREEN NEGATIVE (Neg); URINE BENZODIAZEPINES SCREEN NEGATIVE (Neg); URINE CANNABINOID SCREEN NEGATIVE (Neg); URINE COCAINE SCREEN NEGATIVE (Neg); URINE METHADONE SCREEN NEGATIVE (Neg); URINE OPIATE SCREEN NEGATIVE (Neg); URINE PHENCYCLIDINE SCREEN NEGATIVE (Neg)
[2020-05-28 10:22] LABS: SQUAMOUS EPITHELIAL CELL,UR FEW /LPF (FEW); WBC,URINE TNTC /HPF (0-4)
[2020-05-28 10:26] LABS: BACTERIA,URINE 3+ /HPF (Neg); WBC CLUMPS,URINE FEW /HPF (NEGATIVE)
[2020-05-28] MEDS ORDERED: CEPH500C5 PO (10:31)
[2020-05-28] MEDS ORDERED: PHEN-716 PO (10:42)
[2020-05-28 10:47] VITALS: BP 145/73
== END 2020-05-28 10:51 | disposition home or self-care (01) ==
LOC: MERGE 08:36 → ER 08:36 → EDSEX 08:36 → ER 10:51
DX: N39.0 Urinary tract infection, site not specified (principal); R11.0 Nausea; M54.89 Other dorsalgia; N23 Unspecified renal colic; E78.00 Pure hypercholesterolemia, unspecified; F17.200 Nicotine dependence, unspecified, uncomplicated; Z90.89 Acquired absence of other organs; Z88.8 Allergy status to other drugs, medicaments and biological substances; Z79.2 Long term (current) use of antibiotics; Z79.899 Other long term (current) drug therapy
CPT/HCPCS: 36415; 80053; 80305; 81001; 83690; 85025; 87077; 87088; 87186; 99283

== ENCOUNTER 2020-05-30 07:17 | Emergency (ER) | payer MEDICARE, MEDICAID ==
[~2020-05-30] VITALS: Ht 172.7 cm; Wt 103.2 kg
[~2020-05-30 07:17] MED LIST changes: +CEPH500C5 PO; +PHEN-716 PO
[2020-05-30 08:30] LABS: BASOPHILS % (AUTO) 0.4 % (0-1); EOSINOPHILS % (AUTO) 0.8 % (0-6); HEMATOCRIT 35.4 % (35.0-45.0); HEMOGLOBIN 12.1 g/dl (12.0-16.0); LYMPHOCYTES # (AUTO) 1.1 X10'3 (1.1-4.8); LYMPHOCYTES % (AUTO) 21.8 % (21-51); MEAN CORPUSCULAR HEMOGLOBIN 30.4 PG (27.0-31.0); MEAN CORPUSCULAR HGB CONC 34.1 g/dL (33.0-36.5); MEAN CORPUSCULAR VOLUME 89.1 FL (78-98); MEAN PLATELET VOLUME 7.6 FL (7.4-10.4); MONOCYTES # (AUTO) 0.7 X10'3 (0-0.9); MONOCYTES % (AUTO) 13.5 % (2-12); NEUTROPHILS # (AUTO) 3.4 X10'3 (1.8-7.7); NEUTROPHILS % (AUTO) 63.5 % (42-75); PLATELET COUNT 154 X10'3 (140-440); RED BLOOD COUNT 3.97 X10'6 (4.20-5.60); RED CELL DISTRIBUTION WIDTH 14.6 % (11.5-14.5); WHITE BLOOD COUNT 5.3 X10'3 (4.5-11.0)
[2020-05-30 08:55] LABS: ALANINE AMINOTRANSFERASE 14 U/L (12-78); ALBUMIN 3.1 G/DL (3.4-5.0); ALBUMIN/GLOBULIN RATIO 0.9 (1.1-1.5); ALKALINE PHOSPHATASE 56 IU/L (46-116); ANION GAP 7 (8-16); ASPARTATE AMINO TRANSFERASE 12 U/L (10-37); BILIRUBIN,TOTAL 0.5 MG/DL (0.1-1.0); BLOOD UREA NITROGEN 15 MG/DL (7-18); BUN/CREATININE RATIO 16.5 (6.6-38.0); CALCIUM 8.7 MG/DL (8.5-10.1); CHLORIDE 107 MMOL/L (99-107); CREATININE 0.91 MG/DL (0.40-0.90); GLUCOSE 99 MG/DL (70-104); POTASSIUM 3.9 MMOL/L (3.5-5.1); SODIUM 141 MMOL/L (135-145); TOTAL CARBON DIOXIDE 26.6 MMOL/L (24-32); TOTAL PROTEIN 6.6 G/DL (6.4-8.2); eGFR 62 ML/MIN
[2020-05-30 09:18] LABS: ETHANOL < 0.010 GM/DL (0.0-0.010)
[2020-05-30 09:20] LABS: CLARITY,URINE SLIGHTLY CLOUDY (Clear); COLOR,URINE ORANGE (Yellow); UA COLLECTION TYPE CLN CATCH MIDSTREAM
[2020-05-30 09:29] LABS: BACTERIA,URINE 1+ /HPF (Neg); RBC,URINE 0-2 /HPF (0-2); SQUAMOUS EPITHELIAL CELL,UR FEW /LPF (FEW); URINE AMPHETAMINE SCREEN NEGATIVE (Neg); URINE BARBITUATE SCREEN NEGATIVE (Neg); URINE BENZODIAZEPINES SCREEN NEGATIVE (Neg); URINE CANNABINOID SCREEN NEGATIVE (Neg); URINE COCAINE SCREEN NEGATIVE (Neg); URINE METHADONE SCREEN NEGATIVE (Neg); URINE OPIATE SCREEN NEGATIVE (Neg); URINE PHENCYCLIDINE SCREEN NEGATIVE (Neg); WBC CLUMPS,URINE MODERATE /HPF (NEGATIVE); WBC,URINE 50-100 /HPF (0-4)
--- NOTE | 2020-05-30 10:01 | NUR ---
Discussed pt's recent increase of ED visits (5 in 30 days) w/ edmd [place]; new order for Social Service with recommendation pt be connected to [facility] (Psych Day Care w/ skills building).
--- NOTE | 2020-05-30 11:11 | NUR ---
PATIENT AMBULATED TO OVERFLOW ROOM 21. REPORT TO JULIANNE VERMA.
--- NOTE | 2020-05-30 11:13 | NUR ---
Received from main ER back to overflow.
[2020-05-30] MEDS ORDERED: OLAN2.5T3 PO (11:33)
[2020-05-30] MEDS ORDERED: OLAN10TA3 PO (11:33)
[2020-05-30] MEDS ORDERED: TRIH2TAB3 PO (11:33)
[2020-05-30] MEDS ORDERED: CEPH-572 PO (12:01)
--- NOTE | 2020-05-30 12:56 | NUR ---
Pt sitting up in bed eating lunch. Pt has been lying quietly in bed without complaints.
--- NOTE | 2020-05-30 15:00 | NUR ---
Pt lying in bed awake, without complaints.
--- NOTE | 2020-05-30 17:00 | NUR ---
pt up and cooperative with assessment by [facility]. Pt offerred no complaints
[2020-05-30] MEDS ORDERED: trihexyphenidyl 2mg tablet PO SCH (17:30)
[2020-05-30 17:41] VITALS: BP 117/63
[2020-05-30] MEDS ORDERED: cephalexin 500mg capsule PO SCH (20:00)
[2020-05-30] MEDS ORDERED: buPROPion SR 100mg tab PO SCH (20:00)
[2020-05-30] MEDS ORDERED: traZODone 50mg tablet PO SCH (21:00)
[2020-05-30] MEDS ORDERED: OLANZapine 2.5MG tablet PO SCH (21:00)
[2020-05-30] MEDS ORDERED: olanzapine 10mg tablet PO SCH (21:00)
[2020-05-31] MEDS ORDERED: atorvastatin 20mg tablet PO SCH (08:00)
== END 2020-05-30 18:40 ==
LOC: ER 07:17
DX: R45.851 Suicidal ideations (principal); F32.9 Major depressive disorder, single episode, unspecified; E78.00 Pure hypercholesterolemia, unspecified; Z90.49 Acquired absence of other specified parts of digestive tract; Z90.89 Acquired absence of other organs; Z98.890 Other specified postprocedural states; Z60.2 Problems related to living alone; Z88.5 Allergy status to narcotic agent; Z88.8 Allergy status to other drugs, medicaments and biological substances; Z79.899 Other long term (current) drug therapy
CPT/HCPCS: 36415; 71045; 80053; 80305; 80320; 81001; 84443; 85025; 87088; 99285

== ENCOUNTER 2020-06-05 20:59 | Emergency (ER) | payer MEDICARE, MEDICAID ==
[~2020-06-05] VITALS: Ht 172.7 cm; Wt 100.0 kg
[~2020-06-05 20:59] MED LIST changes: -BENZ0.5T4 PO; +CEPH-572 PO; -NAPR-56 PO; +OLAN10TA3 PO; +OLAN2.5T3 PO; -OLAN5TAB5 PO; -PANT-47 PO; +TRIH2TAB3 PO
[2020-06-05 21:24] LABS: CLARITY,URINE CLEAR (Clear); COLOR,URINE YELLOW (Yellow); GLUCOSE, URINE NEGATIVE (Neg); KETONES,URINE NEGATIVE (Neg); LEUKOCYTE ESTERASE ,URINE NEGATIVE (Neg); NITRITES, URINE NEGATIVE (Neg); OCCULT BLOOD,URINE SMALL (Neg); PH,URINE 6.5 (4.8-8.0); PROTEIN,URINE TRACE mg/dl (Neg); UROBILINOGEN,URINE 0.2 E.U/dL (0.2-1.0)
[2020-06-05 21:25] LABS: UA COLLECTION TYPE CLN CATCH MIDSTREAM
[2020-06-05 21:31] LABS: BACTERIA,URINE FEW /HPF (Neg); MUCUS STRANDS MODERATE /LPF (Neg); RBC,URINE 20-50 /HPF (0-2); SQUAMOUS EPITHELIAL CELL,UR MODERATE /LPF (FEW); WBC,URINE NONE SEEN /HPF (0-4)
[2020-06-05] MEDS ORDERED: ibuprofen 200mg tablet PO ONE (22:00)
[2020-06-05] MEDS ORDERED: FLUC150T66 PO (22:00)
[2020-06-05] MEDS ORDERED: ibuprofen tablet 400 MG TABLET PO ONE (22:00)
[2020-06-05] MEDS ORDERED: IBUP-1985 PO (22:12)
== END 2020-06-05 22:25 | disposition home or self-care (01) ==
LOC: ER 20:59
DX: B37.3 Candidiasis of vulva and vagina (principal); N93.9 Abnormal uterine and vaginal bleeding, unspecified; E78.00 Pure hypercholesterolemia, unspecified; F32.9 Major depressive disorder, single episode, unspecified; Z90.89 Acquired absence of other organs; Z90.49 Acquired absence of other specified parts of digestive tract; Z98.890 Other specified postprocedural states; Z88.8 Allergy status to other drugs, medicaments and biological substances; Z79.899 Other long term (current) drug therapy
CPT/HCPCS: 81001; 99283

== ENCOUNTER 2021-12-28 11:38 | Emergency (ER) | payer MEDICARE, MEDICAID ==
[~2021-12-28] VITALS: Ht 172.7 cm; Wt 131.8 kg
[~2021-12-28 11:38] MED LIST changes: +BUPR-113 PO; -BUPR100T6 PO; -CEPH500C5 PO; +IBUP-1985 PO
[2021-12-28 12:24] VITALS: BP 163/80
[2021-12-28] MEDS ORDERED: orphenadrine citrate 60mg/2ml inj. IM ONE (13:05)
[2021-12-28] MEDS ORDERED: HYDROcodone/acetaminophen 5mg/325mg tablet PO ONE (13:05)
[2021-12-28] MEDS ORDERED: ketorolac trometh inj. 60 MG/2 ML VIAL IM ONE (13:05)
[2021-12-28] MEDS ORDERED: HYDR-3965 PO (13:10)
[2021-12-28] MEDS ORDERED: ORPH100T2 PO (13:10)
--- NOTE | 2021-12-28 13:36 | NUR ---
po med given im x2 given
== END 2021-12-28 14:13 | disposition home or self-care (01) ==
LOC: ER 11:38
DX: M54.42 Lumbago with sciatica, left side (principal); G89.29 Other chronic pain; M25.552 Pain in left hip; E78.00 Pure hypercholesterolemia, unspecified; F32.A Depression, unspecified; Z87.440 Personal history of urinary (tract) infections; Z90.89 Acquired absence of other organs; Z98.890 Other specified postprocedural states; Z60.2 Problems related to living alone; Z88.8 Allergy status to other drugs, medicaments and biological substances; Z79.2 Long term (current) use of antibiotics; Z79.899 Other long term (current) drug therapy
CPT/HCPCS: 96372; 99284; J1885; J2360

== ENCOUNTER 2022-01-18 09:07 | Emergency (ER) | payer MEDICARE, MEDICAID ==
[~2022-01-18] VITALS: Ht 172.7 cm; Wt 130.4 kg
[~2022-01-18 09:07] MED LIST changes: +HYDR-3965 PO; +ORPH100T2 PO
--- NOTE | 2022-01-18 13:12 | NUR ---
dr. diaz at bedside.
--- NOTE | 2022-01-18 13:27 | NUR ---
LAB AT BEDSIDE.
[2022-01-18 13:43] LABS: BASOPHILS % (AUTO) 0.4 % (0-1); EOSINOPHILS % (AUTO) 0.4 % (0-6); HEMATOCRIT 39.2 % (35.0-45.0); HEMOGLOBIN 12.8 g/dl (12.0-16.0); LYMPHOCYTES # (AUTO) 1.5 X10'3 (1.1-4.8); LYMPHOCYTES % (AUTO) 21.2 % (21-51); MEAN CORPUSCULAR HEMOGLOBIN 28.5 PG (27.0-31.0); MEAN CORPUSCULAR HGB CONC 32.7 g/dL (33.0-36.5); MEAN CORPUSCULAR VOLUME 87.1 FL (78-98); MEAN PLATELET VOLUME 7.6 FL (7.4-10.4); MONOCYTES # (AUTO) 0.4 X10'3 (0-0.9); MONOCYTES % (AUTO) 6.1 % (2-12); NEUTROPHILS % (AUTO) 71.9 % (42-75); PLATELET COUNT 184 X10'3 (140-440); RED BLOOD COUNT 4.51 X10'6 (4.20-5.60); RED CELL DISTRIBUTION WIDTH 15.4 % (11.5-14.5); WHITE BLOOD COUNT 6.9 X10'3 (4.5-11.0)
[2022-01-18 13:57] LABS: ALANINE AMINOTRANSFERASE 14 U/L (12-78); ALBUMIN/GLOBULIN RATIO 1.2 (1.1-1.5); ALKALINE PHOSPHATASE 71 IU/L (46-116); ANION GAP 8 (8-16); ASPARTATE AMINO TRANSFERASE 12 U/L (10-37); BILIRUBIN,TOTAL 0.6 MG/DL (0.1-1.0); BLOOD UREA NITROGEN 20 MG/DL (7-18); BUN/CREATININE RATIO 19.2 (6.6-38.0); CALCIUM 8.9 MG/DL (8.5-10.1); CHLORIDE 107 MMOL/L (99-107); CREATININE 1.04 MG/DL (0.40-0.90); GLUCOSE 89 MG/DL (70-104); SODIUM 142 MMOL/L (135-145); TOTAL CARBON DIOXIDE 26.6 MMOL/L (24-32); TOTAL PROTEIN 7.4 G/DL (6.4-8.2); eGFR 53 ML/MIN
[2022-01-18 13:58] LABS: C-REACTIVE PROTEIN 2.97 MG/DL (0.0-0.5); CREATINE KINASE 95 U/L (26-192)
--- NOTE | 2022-01-18 14:20 | NUR ---
pt at bedside for consult.
--- NOTE | 2022-01-18 14:45 | NUR ---
pt's caregiver phone number was disconnected. called pt's sister to come and pick her up.
--- NOTE | 2022-01-18 14:45 | NUR ---
pt ambulated mult times around nurses station with physical therapy.
--- NOTE | 2022-01-18 15:00 | NUR ---
[facility] given [facility] to [facility], verbalized understanding.
[2022-01-18 15:28] VITALS: BP 132/76
== END 2022-01-18 15:15 | disposition home or self-care (01) ==
LOC: ER 09:07
DX: R53.1 Weakness (principal); F20.9 Schizophrenia, unspecified; F40.298 Other specified phobia; R26.2 Difficulty in walking, not elsewhere classified; G58.9 Mononeuropathy, unspecified; E78.00 Pure hypercholesterolemia, unspecified; F17.200 Nicotine dependence, unspecified, uncomplicated; F32.A Depression, unspecified; Z87.440 Personal history of urinary (tract) infections; Z90.89 Acquired absence of other organs; Z98.890 Other specified postprocedural states; Z60.2 Problems related to living alone; Z88.8 Allergy status to other drugs, medicaments and biological substances; Z79.2 Long term (current) use of antibiotics; Z79.899 Other long term (current) drug therapy
CPT/HCPCS: 36415; 80053; 82550; 85025; 86140; 97161; 97530; 97535; 99284

== ENCOUNTER 2022-02-10 14:12 | Inpatient (IN) | payer MEDICARE, MEDICAID ==
[~2022-02-10] VITALS: Ht 172.7 cm; Wt 131.8 kg
[~2022-02-10 14:12] MED LIST changes: -HYDR-3965 PO
[2022-02-10 14:45] LABS: BASOPHILS % (AUTO) 0.2 % (0-1); EOSINOPHILS % (AUTO) 0.4 % (0-6); HEMATOCRIT 34.6 % (35.0-45.0); HEMOGLOBIN 11.8 g/dl (12.0-16.0); LYMPHOCYTES # (AUTO) 0.9 X10'3 (1.1-4.8); LYMPHOCYTES % (AUTO) 10.4 % (21-51); MEAN CORPUSCULAR HEMOGLOBIN 29.7 PG (27.0-31.0); MEAN CORPUSCULAR VOLUME 87.3 FL (78-98); MEAN PLATELET VOLUME 7.7 FL (7.4-10.4); MONOCYTES # (AUTO) 0.7 X10'3 (0-0.9); NEUTROPHILS # (AUTO) 7.2 X10'3 (1.8-7.7); PLATELET COUNT 183 X10'3 (140-440); RED BLOOD COUNT 3.96 X10'6 (4.20-5.60); RED CELL DISTRIBUTION WIDTH 14.6 % (11.5-14.5); WHITE BLOOD COUNT 8.9 X10'3 (4.5-11.0)
[2022-02-10 14:52] LABS: ALANINE AMINOTRANSFERASE 17 U/L (12-78); ALBUMIN 3.5 G/DL (3.4-5.0); ALBUMIN/GLOBULIN RATIO 1.1 (1.1-1.5); ALKALINE PHOSPHATASE 59 IU/L (46-116); ANION GAP 6 (8-16); ASPARTATE AMINO TRANSFERASE 14 U/L (10-37); BILIRUBIN,TOTAL 0.3 MG/DL (0.1-1.0); BLOOD UREA NITROGEN 20 MG/DL (7-18); BUN/CREATININE RATIO 21.5 (6.6-38.0); CALCIUM 8.4 MG/DL (8.5-10.1); CHLORIDE 106 MMOL/L (99-107); CREATININE 0.93 MG/DL (0.40-0.90); GLUCOSE 119 MG/DL (70-104); POTASSIUM 3.8 MMOL/L (3.5-5.1); SODIUM 141 MMOL/L (135-145); TOTAL CARBON DIOXIDE 28.9 MMOL/L (24-32); TOTAL PROTEIN 6.6 G/DL (6.4-8.2); eGFR 60 ML/MIN
[2022-02-10] MEDS ORDERED: nitroGLYCERIN 0.4mg/hour patch TD ONE (15:15)
[2022-02-10] MEDS ORDERED: aspirin 81mg tab.chew PO ONE (15:15)
[2022-02-10 15:21] LABS: CLARITY,URINE CLEAR (Clear); COLOR,URINE YELLOW (Yellow); GLUCOSE, URINE NEGATIVE (Neg); KETONES,URINE NEGATIVE (Neg); LEUKOCYTE ESTERASE ,URINE NEGATIVE (Neg); NITRITES, URINE NEGATIVE (Neg); OCCULT BLOOD,URINE MODERATE (Neg); PROTEIN,URINE NEGATIVE (Neg); UROBILINOGEN,URINE 0.2 E.U/dL (0.2-1.0)
[2022-02-10 15:24] LABS: UA COLLECTION TYPE NON-SPECIFIED; WBC,URINE 0-4 /HPF (0-4)
[2022-02-10 15:25] LABS: BACTERIA,URINE NONE SEEN /HPF (Neg); MUCUS STRANDS NONE SEEN /LPF (Neg); SQUAMOUS EPITHELIAL CELL,UR FEW /LPF (FEW)
[2022-02-10] MEDS ORDERED: potassium CL 10mEq/100ml bag 100 ML IV PRN (16:10)
[2022-02-10] MEDS ORDERED: ondansetron/PF 4mg/2ml inj IV PRN (16:10)
[2022-02-10] MEDS ORDERED: POTASSIUM BICARB 20meq eff tab 20 MEQ TABLET.EFF PO PRN ×2 (16:10)
[2022-02-10] MEDS ORDERED: magnesium 2GM in 50ml NS 50 ML IV PRN (16:10)
[2022-02-10] MEDS ORDERED: magnesium 4gm in 100ml NS 100 ML IV PRN (16:10)
[2022-02-10] MEDS ORDERED: magnesium hydroxide 30ml (MOM) UD suspension PO PRN (16:10)
[2022-02-10] MEDS ORDERED: magnesium Cl slow-release 64mg tablet PO PRN (16:10)
[2022-02-10] MEDS ORDERED: acetaminophen 325mg tablet PO PRN ×2 (16:10)
[2022-02-10] MEDS: normal saline 1000ml 1,000 ML IV SCH (16:48)
[2022-02-10] MEDS: lisinopril 10 MG tablet PO SCH (17:14)
--- NOTE | 2022-02-10 18:29 | NUR ---
ULTRASOUND AT BEDSIDE
--- NOTE | 2022-02-10 18:50 | NUR ---
CALLED ORTHO TO GIVE REPORT. RN GETTING REPORT ON OTHER PATIENTS AND WILL CALL ME BACK.
[2022-02-10 19:35] VITALS: BP 135/75
--- NOTE | 2022-02-10 19:35 | NUR ---
PATIENT ADMITTED TO ROOM 4014A FROM ER FOR WEAKNESS, RECURRENT FALLS, NSTEMI, HTN. PLACED COMFORTABLE IN BED. VITAL SIGNS TAKEN AND RECORDED.
[2022-02-10] MEDS ORDERED: gabapentin 400mg capsule PO SCH (20:00)
[2022-02-10] MEDS: K and/or MAG REPLACEMENT MC SCH (20:00)
[2022-02-10] MEDS: traMADol 50MG tablet PO PRN (20:35)
[2022-02-10] MEDS ORDERED: temazepam 15mg capsule PO PRN (21:00)
[2022-02-10] MEDS ORDERED: PARO40TA PO (21:27)
[2022-02-10] MEDS ORDERED: SIMV-42 PO (21:27)
[2022-02-10] MEDS ORDERED: VALB40CA2 PO (21:27)
[2022-02-10] MEDS ORDERED: GABA300C PO (21:27)
[2022-02-10] MEDS ORDERED: OLAN15TA3 PO (21:27)
[2022-02-10] MEDS ORDERED: BUSP10TA11 PO (21:27)
[2022-02-10] MEDS ORDERED: LORA-269 PO (21:27)
[2022-02-10] MEDS ORDERED: PARO10TA85 PO (21:27)
[2022-02-10 22:00] VITALS: BP 122/84
[2022-02-10] MEDS ORDERED: gabapentin 300mg capsule PO SCH (22:39)
[2022-02-10] MEDS: gabapentin 300mg capsule PO SCH (22:50)
[2022-02-10] MEDS: heparin, porcine 5000 units/ml vial SQ SCH (22:51)
[2022-02-11] MEDS: normal saline 1000ml 1,000 ML IV SCH ×2 (05:29→19:49)
[2022-02-11] MEDS: traMADol 50MG tablet PO PRN ×2 (05:36→14:28)
[2022-02-11 06:00] VITALS: BP 101/60
[2022-02-11 06:08] LABS: BASOPHILS % (AUTO) 0.2 % (0-1); EOSINOPHILS # (AUTO) 0.1 X10'3 (0-0.9); EOSINOPHILS % (AUTO) 1.1 % (0-6); HEMATOCRIT 31.5 % (35.0-45.0); HEMOGLOBIN 10.4 g/dl (12.0-16.0); LYMPHOCYTES # (AUTO) 1.4 X10'3 (1.1-4.8); LYMPHOCYTES % (AUTO) 18.9 % (21-51); MEAN CORPUSCULAR HEMOGLOBIN 28.9 PG (27.0-31.0); MEAN CORPUSCULAR HGB CONC 33.1 g/dL (33.0-36.5); MEAN CORPUSCULAR VOLUME 87.3 FL (78-98); MEAN PLATELET VOLUME 7.9 FL (7.4-10.4); MONOCYTES # (AUTO) 0.7 X10'3 (0-0.9); MONOCYTES % (AUTO) 10.1 % (2-12); NEUTROPHILS # (AUTO) 5.1 X10'3 (1.8-7.7); NEUTROPHILS % (AUTO) 69.7 % (42-75); PLATELET COUNT 175 X10'3 (140-440); RED BLOOD COUNT 3.61 X10'6 (4.20-5.60); RED CELL DISTRIBUTION WIDTH 14.5 % (11.5-14.5); WHITE BLOOD COUNT 7.3 X10'3 (4.5-11.0)
[2022-02-11 06:30] LABS: ALANINE AMINOTRANSFERASE 15 U/L (12-78); ALBUMIN/GLOBULIN RATIO 1.1 (1.1-1.5); ALKALINE PHOSPHATASE 51 IU/L (46-116); ANION GAP 5 (8-16); ASPARTATE AMINO TRANSFERASE 17 U/L (10-37); BILIRUBIN,TOTAL 0.4 MG/DL (0.1-1.0); BLOOD UREA NITROGEN 14 MG/DL (7-18); BUN/CREATININE RATIO 17.9 (6.6-38.0); CHLORIDE 111 MMOL/L (99-107); CREATININE 0.78 MG/DL (0.40-0.90); GLUCOSE 98 MG/DL (70-104); POTASSIUM 3.6 MMOL/L (3.5-5.1); SODIUM 143 MMOL/L (135-145); TOTAL CARBON DIOXIDE 26.9 MMOL/L (24-32); TOTAL PROTEIN 5.7 G/DL (6.4-8.2); eGFR 73 ML/MIN
--- NOTE | 2022-02-11 06:30 | NUR ---
Problems reprioritized. Patient report given, questions answered & plan of care reviewed with JOAN WHITAKER.
[2022-02-11] MEDS: gabapentin 300mg capsule PO SCH ×4 (07:46→20:43)
[2022-02-11] MEDS: lisinopril 10 MG tablet PO SCH (07:46)
[2022-02-11] MEDS: heparin, porcine 5000 units/ml vial SQ SCH (07:47)
[2022-02-11] MEDS: K and/or MAG REPLACEMENT MC SCH ×2 (08:00→20:00)
[2022-02-11] MEDS ORDERED: gabapentin 300mg capsule PO SCH (08:00)
--- NOTE | 2022-02-11 08:29 | NUR ---
Paged Dr. Lomax O/N Sommer RN [phone] RE: Melanie Verdin. Patient asking for Ativan for her anxiety. She also need to take her psych meds that are on the medication reconciliation.
[2022-02-11 10:00] VITALS: BP 154/88
[2022-02-11] MEDS ORDERED: metoprolol tartrate 1mg/ml inj IV PRN (10:35)
[2022-02-11] MEDS ORDERED: heparin 25,000 UNIT/250ml bag 250 ML IV SCH (10:35)
[2022-02-11] MEDS ORDERED: aspirin 81mg tab.chew PO ONE (10:35)
[2022-02-11] MEDS ORDERED: nitroGLYCERIN 0.4mg SUBLingual tab SL PRN (10:35)
[2022-02-11] MEDS ORDERED: heparin 10,000 units/1 ML INJ IV PRN (10:35)
[2022-02-11] MEDS ORDERED: heparin 10,000 units/1 ML INJ IV ONE (10:35)
[2022-02-11] MEDS ORDERED: aminophylline 250mg/10ml inj. IV PRN (10:35)
[2022-02-11] MEDS: busPIRone 15mg tablet PO SCH ×2 (12:44→20:42)
[2022-02-11] MEDS: LORazepam 1 MG tablet PO SCH ×2 (12:45→20:41)
--- NOTE | 2022-02-11 13:21 | NUR ---
When I spoke to Dr. Lomax about duplicate order for Gabapentin, he said to me whatever patient taking that's okay for me. He asked me to call patient's pharmacy [facility] to clarify the exact dose of Gabapentin, the voice messaging states "currently closed". It is Saturday at this time. Patient's medication reconciliation stated that she is on Gabapentin 300mg TID. Will keep this schedule since this is the one that is on med recon list. Since patient already received 600 mg of Gabapentin this am, will hold the 13:00 dose at this time.
[2022-02-11 18:00] VITALS: BP 141/82
[2022-02-11] MEDS: PARoxetine 10mg tablet PO SCH (20:42)
[2022-02-11] MEDS ORDERED: PAROXETINE HCL PO SCH (21:00)
[2022-02-11] MEDS ORDERED: VALBENAZINE TOSYLATE PO SCH (21:00)
[2022-02-11 22:00] VITALS: BP 117/69
[2022-02-11] MEDS: ALBUTEROL INHALER 1 PUFF/90 MCG INHALER IH PRN (22:26)
[2022-02-11] MEDS: traZODone 50mg tablet PO SCH (22:26)
[2022-02-11] MEDS: OLANZAPINE 5 MG TABLET PO SCH (22:37)
[2022-02-12] VITALS (11 sets, daily range): BP systolic 113–155; BP diastolic 54–83
[2022-02-12] MEDS: traMADol 50MG tablet PO PRN ×4 (04:48→23:45)
[2022-02-12 06:28] LABS: BASOPHILS % (AUTO) 0.2 % (0-1); EOSINOPHILS # (AUTO) 0.1 X10'3 (0-0.9); HEMATOCRIT 34.2 % (35.0-45.0); HEMOGLOBIN 11.4 g/dl (12.0-16.0); LYMPHOCYTES # (AUTO) 1.5 X10'3 (1.1-4.8); LYMPHOCYTES % (AUTO) 21.7 % (21-51); MEAN CORPUSCULAR HEMOGLOBIN 29.3 PG (27.0-31.0); MEAN CORPUSCULAR HGB CONC 33.4 g/dL (33.0-36.5); MEAN CORPUSCULAR VOLUME 87.6 FL (78-98); MONOCYTES # (AUTO) 0.6 X10'3 (0-0.9); MONOCYTES % (AUTO) 8.6 % (2-12); NEUTROPHILS # (AUTO) 4.7 X10'3 (1.8-7.7); NEUTROPHILS % (AUTO) 68.5 % (42-75); PLATELET COUNT 171 X10'3 (140-440); RED BLOOD COUNT 3.91 X10'6 (4.20-5.60); RED CELL DISTRIBUTION WIDTH 14.9 % (11.5-14.5); WHITE BLOOD COUNT 6.9 X10'3 (4.5-11.0)
[2022-02-12 06:42] LABS: ALANINE AMINOTRANSFERASE 12 U/L (12-78); ALBUMIN 3.1 G/DL (3.4-5.0); ALKALINE PHOSPHATASE 56 IU/L (46-116); ANION GAP 7 (8-16); ASPARTATE AMINO TRANSFERASE 13 U/L (10-37); BILIRUBIN,TOTAL 0.4 MG/DL (0.1-1.0); BLOOD UREA NITROGEN 11 MG/DL (7-18); BUN/CREATININE RATIO 15.7 (6.6-38.0); CALCIUM 8.4 MG/DL (8.5-10.1); CHLORIDE 110 MMOL/L (99-107); GLUCOSE 95 MG/DL (70-104); SODIUM 144 MMOL/L (135-145); TOTAL CARBON DIOXIDE 26.8 MMOL/L (24-32); TOTAL PROTEIN 6.2 G/DL (6.4-8.2); eGFR 83 ML/MIN
--- NOTE | 2022-02-12 07:09 | NUR ---
Page Sent promotional table spacer PAGER ID: [phone] MESSAGE: 18 Wall, pt PTT is 31 and is getting SQ heparin. IV was DC yesterday. 3404 estrella
--- NOTE | 2022-02-12 07:11 | NUR ---
Patient in room ORTHO 4018. I have received report from elyssa rn and had the opportunity to ask questions and assume patient care.
[2022-02-12] MEDS: K and/or MAG REPLACEMENT MC SCH ×2 (08:00→20:00)
[2022-02-12] MEDS: buPROPion SR 100mg tab PO SCH (08:42)
[2022-02-12] MEDS: atorvastatin 10mg tablet PO SCH (08:43)
[2022-02-12] MEDS: busPIRone 15mg tablet PO SCH ×3 (08:43→20:54)
[2022-02-12] MEDS: aspirin 81mg tab.chew PO SCH (08:43)
[2022-02-12] MEDS: gabapentin 300mg capsule PO SCH ×3 (08:43→20:54)
[2022-02-12] MEDS: LORazepam 1 MG tablet PO SCH ×3 (08:44→20:54)
[2022-02-12] MEDS: heparin, porcine 5000 units/ml vial SQ SCH ×2 (08:45→20:54)
[2022-02-12] MEDS ORDERED: magnesium hydroxide 30ml (MOM) UD suspension PO PRN (09:10)
[2022-02-12] MEDS ORDERED: traMADol 50MG tablet PO PRN (09:35)
[2022-02-12] MEDS: normal saline 1000ml 1,000 ML IV SCH (09:44)
[2022-02-12] MEDS: regadenoson 0.4mg/5ml syringe IV PRN ×2 (10:00→10:14)
[2022-02-12] MEDS ORDERED: VALBENAZINE TOSYLATE PO SCH (11:26)
[2022-02-12] MEDS: lisinopril 10 MG tablet PO SCH (12:58)
--- NOTE | 2022-02-12 13:45 | NUR ---
pts caregiver will bring in pts home medication tonight.
--- NOTE | 2022-02-12 18:17 | NUR ---
Problems reprioritized. Patient report given, questions answered & plan of care reviewed with elyssa farnsworth.
[2022-02-12] MEDS: PARoxetine 10mg tablet PO SCH (20:54)
[2022-02-12] MEDS: docusate sod 100mg capsule PO SCH (20:54)
[2022-02-12] MEDS: ALBUTEROL INHALER 1 PUFF/90 MCG INHALER IH PRN (20:58)
[2022-02-12] MEDS: traZODone 50mg tablet PO SCH (22:19)
[2022-02-12] MEDS: OLANZAPINE 5 MG TABLET PO SCH (22:19)
[2022-02-13] MEDS: traMADol 50MG tablet PO PRN ×3 (04:17→15:56)
[2022-02-13] MEDS: normal saline 1000ml 1,000 ML IV SCH (05:44)
[2022-02-13 06:00] VITALS: BP 134/62
[2022-02-13 06:47] LABS: HEMOGLOBIN 11.9 g/dl (12.0-16.0); MEAN CORPUSCULAR HGB CONC 33.2 g/dL (33.0-36.5); WHITE BLOOD COUNT 7.3 X10'3 (4.5-11.0)
[2022-02-13 06:51] LABS: BASOPHILS % (AUTO) 0.3 % (0-1); EOSINOPHILS # (AUTO) 0.1 X10'3 (0-0.9); EOSINOPHILS % (AUTO) 0.9 % (0-6); LYMPHOCYTES # (AUTO) 1.7 X10'3 (1.1-4.8); LYMPHOCYTES % (AUTO) 22.7 % (21-51); MEAN CORPUSCULAR HEMOGLOBIN 29.5 PG (27.0-31.0); MEAN CORPUSCULAR VOLUME 88.8 FL (78-98); MEAN PLATELET VOLUME 7.9 FL (7.4-10.4); MONOCYTES # (AUTO) 0.6 X10'3 (0-0.9); MONOCYTES % (AUTO) 8.7 % (2-12); NEUTROPHILS # (AUTO) 4.9 X10'3 (1.8-7.7); NEUTROPHILS % (AUTO) 67.4 % (42-75); PLATELET COUNT 193 X10'3 (140-440); RED BLOOD COUNT 4.05 X10'6 (4.20-5.60); RED CELL DISTRIBUTION WIDTH 14.9 % (11.5-14.5)
--- NOTE | 2022-02-13 06:55 | NUR ---
Patient in room ORTHO 4009. I have received report from elyssa rn and had the opportunity to ask questions and assume patient care.
[2022-02-13 07:10] LABS: ALANINE AMINOTRANSFERASE 15 U/L (12-78); ALBUMIN 3.2 G/DL (3.4-5.0); ALKALINE PHOSPHATASE 58 IU/L (46-116); ANION GAP 5 (8-16); ASPARTATE AMINO TRANSFERASE 14 U/L (10-37); BILIRUBIN,TOTAL 0.5 MG/DL (0.1-1.0); BLOOD UREA NITROGEN 13 MG/DL (7-18); BUN/CREATININE RATIO 13.7 (6.6-38.0); CALCIUM 8.7 MG/DL (8.5-10.1); CHLORIDE 111 MMOL/L (99-107); CHOL/HDL RATIO 3.1 (0.00-4.99); CHOLESTEROL 166 MG/DL (0-200); CREATININE 0.95 MG/DL (0.40-0.90); GLUCOSE 94 MG/DL (70-104); HDL CHOLESTEROL 54 MG/DL (35-60); LDL CHOLESTEROL 85 MG/DL (50-100); POTASSIUM 4.3 MMOL/L (3.5-5.1); SODIUM 143 MMOL/L (135-145); TOTAL CARBON DIOXIDE 27.2 MMOL/L (24-32); TOTAL PROTEIN 6.4 G/DL (6.4-8.2); TRIGLYCERIDES 75 MG/DL (20-135); eGFR 58 ML/MIN
[2022-02-13] MEDS: heparin, porcine 5000 units/ml vial SQ SCH (07:26)
[2022-02-13] MEDS: buPROPion SR 100mg tab PO SCH (07:27)
[2022-02-13] MEDS: atorvastatin 10mg tablet PO SCH (07:27)
[2022-02-13] MEDS: docusate sod 100mg capsule PO SCH (07:27)
[2022-02-13] MEDS: gabapentin 300mg capsule PO SCH ×2 (07:27→13:03)
[2022-02-13] MEDS: LORazepam 1 MG tablet PO SCH ×2 (07:28→13:03)
[2022-02-13] MEDS: lisinopril 10 MG tablet PO SCH (07:28)
[2022-02-13] MEDS: busPIRone 15mg tablet PO SCH ×2 (07:28→13:03)
[2022-02-13] MEDS: aspirin 81mg tab.chew PO SCH (07:37)
[2022-02-13] MEDS: K and/or MAG REPLACEMENT MC SCH (08:00)
[2022-02-13 10:40] VITALS: BP 114/62
--- NOTE | 2022-02-13 15:53 | NUR ---
Problems reprioritized. Patient report given, questions answered & plan of care reviewed with Maxim fitch [place] .
--- NOTE | 2022-02-13 16:04 | NUR ---
pt does not have any wound photos in chr Addendum: 02/13/22 at 1604 by nAupam Groves RN pt does not have any wound photos in chart
--- NOTE | 2022-02-13 16:11 | NUR ---
pt is stable for discharge, iv was DC, all belongings sent with pt, meds from pharmacy given to pt to take with them, report called to marie, packet given to [facility] personnel pt was wheeled down in a wheel chair by [facility] personnel and left in the [facility].
== END 2022-02-13 16:10 | DRG 558 ==
LOC: ER 14:12 → ED HOLD 16:11 → ORTHO 4S 19:34
PROVIDERS: ADMIT Internal Medicine; ATTEND Family Medicine
PROC: 4A02XM4 Measurement of Cardiac Total Activity, External Approach (ICD-10-PCS; principal; 2022-02-12)
PROC: 3E033HZ Introduction of Radioactive Substance into Peripheral Vein, Percutaneous Approach (ICD-10-PCS; 2022-02-12)
DX: M70.22 Olecranon bursitis, left elbow (principal); Z68.41 Body mass index [BMI] 40.0-44.9, adult; J44.9 Chronic obstructive pulmonary disease, unspecified; G89.29 Other chronic pain; F25.9 Schizoaffective disorder, unspecified; E78.5 Hyperlipidemia, unspecified; E78.00 Pure hypercholesterolemia, unspecified; Z20.822 Contact with and (suspected) exposure to COVID-19; I10 Essential (primary) hypertension; Z60.2 Problems related to living alone; M54.50 Low back pain, unspecified; E66.01 Morbid (severe) obesity due to excess calories; W18.39XA Other fall on same level, initial encounter; G58.9 Mononeuropathy, unspecified; F41.8 Other specified anxiety disorders; I27.20 Pulmonary hypertension, unspecified; M19.022 Primary osteoarthritis, left elbow; M48.00 Spinal stenosis, site unspecified; R29.6 Repeated falls; Z79.82 Long term (current) use of aspirin; Z79.899 Other long term (current) drug therapy; Z80.3 Family history of malignant neoplasm of breast; Z82.49 Family history of ischemic heart disease and other diseases of the circulatory system; Z87.891 Personal history of nicotine dependence; Z90.49 Acquired absence of other specified parts of digestive tract; Z88.8 Allergy status to other drugs, medicaments and biological substances; Z87.440 Personal history of urinary (tract) infections; Y93.89 Activity, other specified; Y92.098 Other place in other non-institutional residence as the place of occurrence of the external cause; Y99.8 Other external cause status
CPT/HCPCS: 36415; 71045; 72100; 73070; 73200; 78452; 80053; 80061; 81001; 82948; 83605; 83880; 84443; 84484; 85025; 85610; 85730; 87040; 87081; 87635; 93005; 93017; 93306; 94640; 94760; 97116; 97161; 97530; 99285; A6209; A6212; A6213; A6258; A6449; A9500; G0378; J1644; J2785; J7030

== ENCOUNTER 2022-03-07 16:45 | Emergency (ER) | payer MEDICARE, MEDICAID ==
[~2022-03-07] VITALS: Ht 172.7 cm; Wt 125.5 kg
[~2022-03-07 16:45] MED LIST changes: -ATOR10TA87 PO; +BUSP10TA11 PO; -CEPH-572 PO; +GABA300C PO; -IBUP-1985 PO; +LORA-269 PO; -OLAN10TA3 PO; +OLAN15TA3 PO; -OLAN2.5T3 PO; -ORPH100T2 PO; +PARO10TA85 PO; +PARO40TA PO; -PHEN-716 PO; +SIMV-42 PO; -TRIH2TAB3 PO; +VALB40CA2 PO
[2022-03-07 17:51] VITALS: BP 143/82
== END 2022-03-07 21:38 | disposition home or self-care (01) ==
LOC: ER 16:45
DX: S80.212A Abrasion, left knee, initial encounter (principal); S80.211A Abrasion, right knee, initial encounter; R53.1 Weakness; E78.00 Pure hypercholesterolemia, unspecified; Z87.440 Personal history of urinary (tract) infections; Z90.49 Acquired absence of other specified parts of digestive tract; Z88.8 Allergy status to other drugs, medicaments and biological substances; Z79.899 Other long term (current) drug therapy; W19.XXXA Unspecified fall, initial encounter; Y93.89 Activity, other specified; Y92.89 Other specified places as the place of occurrence of the external cause; Y99.8 Other external cause status
CPT/HCPCS: 99283; A6222; 99281; A6449

== ENCOUNTER 2022-03-25 03:51 | Emergency (ER) | payer MEDICARE, MEDICAID ==
[~2022-03-25] VITALS: Ht 172.7 cm; Wt 125.5 kg
[2022-03-25] MEDS ORDERED: acetaminophen 325mg tablet PO ONE (05:10)
[2022-03-25] MEDS ORDERED: ketorolac tromethamine 15mg/ml inj. IV ONE (09:00)
[2022-03-25 10:00] VITALS: BP 135/72
--- NOTE | 2022-03-25 10:15 | NUR ---
pt passed ambulation trial. ambulated with walker to restroom and back with steady gait.
== END 2022-03-25 10:45 | disposition home or self-care (01) ==
LOC: ER 03:52
DX: M25.552 Pain in left hip (principal); H53.9 Unspecified visual disturbance; F32.9 Major depressive disorder, single episode, unspecified; E78.00 Pure hypercholesterolemia, unspecified; Z87.448 Personal history of other diseases of urinary system; Z88.8 Allergy status to other drugs, medicaments and biological substances; Z88.5 Allergy status to narcotic agent; W19.XXXA Unspecified fall, initial encounter; Y93.89 Activity, other specified; Y92.89 Other specified places as the place of occurrence of the external cause; Y99.8 Other external cause status
CPT/HCPCS: 73502; 73700; 96374; 99284; J1885

== ENCOUNTER 2022-04-06 20:46 | Emergency (ER) | payer MEDICARE, MEDICAID ==
[~2022-04-06] VITALS: Ht 162.6 cm; Wt 113.6 kg
[2022-04-07] MEDS ORDERED: TETanus/Pertussis (Acell)/Diphther VAC/PF (Tdap-Adult) 0.5ml syringe IMVAC ONE (01:30)
[2022-04-07 02:48] VITALS: BP 131/75
[2022-04-18] MEDS ORDERED: PRED10TA23 PO ×2 (10:37)
[2022-04-19] MEDS ORDERED: PRED10TA23 PO ×2 (09:31)
[2022-05-12] MEDS ORDERED: LORA-268 PO (20:12)
[2022-05-12] MEDS ORDERED: BUSP15TA7 PO (20:13)
[2022-05-12] MEDS ORDERED: IBUP-1986 PO (20:13)
[2022-05-12] MEDS ORDERED: BUPR-317 PO (20:16)
[2022-05-12] MEDS ORDERED: BUDE10.22 INH (20:16)
[2022-05-12] MEDS ORDERED: ALBU17AE26 INH (20:16)
== END 2022-04-07 02:49 | disposition home or self-care (01) ==
LOC: ER 20:47
DX: S50.02XA Contusion of left elbow, initial encounter (principal); S50.01XA Contusion of right elbow, initial encounter; S80.212A Abrasion, left knee, initial encounter; E78.00 Pure hypercholesterolemia, unspecified; G89.29 Other chronic pain; M54.9 Dorsalgia, unspecified; J44.9 Chronic obstructive pulmonary disease, unspecified; F32.A Depression, unspecified; Z90.49 Acquired absence of other specified parts of digestive tract; Z98.890 Other specified postprocedural states; Z79.899 Other long term (current) drug therapy; Z88.8 Allergy status to other drugs, medicaments and biological substances; Z88.5 Allergy status to narcotic agent; W19.XXXA Unspecified fall, initial encounter; Y93.89 Activity, other specified; Y92.89 Other specified places as the place of occurrence of the external cause; Y99.8 Other external cause status
CPT/HCPCS: 72220; 90471; 90715; 99284

== ENCOUNTER 2022-04-18 08:54 | Emergency (ER) | payer MEDICARE, MEDICAID ==
[~2022-04-18] VITALS: Ht 172.7 cm; Wt 125.5 kg
[2022-04-18] MEDS ORDERED: magnesium 2GM in 50ml NS 50 ML IV ONE (09:05)
[2022-04-18] MEDS ORDERED: albuterol 2.5 MG/3 ML nebule CONTNEB PRN (09:05)
[2022-04-18 09:32] LABS: BASOPHILS % (AUTO) 0.2 % (0-1); EOSINOPHILS % (AUTO) 0.5 % (0-6); HEMATOCRIT 39.2 % (35.0-45.0); HEMOGLOBIN 12.9 g/dl (12.0-16.0); LYMPHOCYTES # (AUTO) 1.9 X10'3 (1.1-4.8); LYMPHOCYTES % (AUTO) 21.6 % (21-51); MEAN CORPUSCULAR HGB CONC 32.9 g/dL (33.0-36.5); MEAN CORPUSCULAR VOLUME 88.4 FL (78-98); MEAN PLATELET VOLUME 7.7 FL (7.4-10.4); MONOCYTES # (AUTO) 0.7 X10'3 (0-0.9); MONOCYTES % (AUTO) 8.1 % (2-12); NEUTROPHILS # (AUTO) 6.1 X10'3 (1.8-7.7); NEUTROPHILS % (AUTO) 69.6 % (42-75); PLATELET COUNT 189 X10'3 (140-440); RED BLOOD COUNT 4.44 X10'6 (4.20-5.60); RED CELL DISTRIBUTION WIDTH 14.3 % (11.5-14.5); WHITE BLOOD COUNT 8.8 X10'3 (4.5-11.0)
[2022-04-18 09:58] LABS: ALANINE AMINOTRANSFERASE 24 U/L (12-78); ALBUMIN 3.5 G/DL (3.4-5.0); ALKALINE PHOSPHATASE 76 IU/L (46-116); ANION GAP 9 (8-16); ASPARTATE AMINO TRANSFERASE 25 U/L (10-37); BILIRUBIN,TOTAL 0.6 MG/DL (0.1-1.0); BLOOD UREA NITROGEN 13 MG/DL (7-18); CALCIUM 8.5 MG/DL (8.5-10.1); CHLORIDE 105 MMOL/L (99-107); CREATININE 0.81 MG/DL (0.40-0.90); GLUCOSE 115 MG/DL (70-104); POTASSIUM 3.8 MMOL/L (3.5-5.1); SODIUM 140 MMOL/L (135-145); TOTAL CARBON DIOXIDE 25.9 MMOL/L (24-32); TOTAL PROTEIN 7.1 G/DL (6.4-8.2); eGFR 70 ML/MIN
[2022-04-18] MEDS ORDERED: PRED10TA23 PO (10:37)
[2022-04-18] MEDS ORDERED: LORazepam 1 MG tablet PO ONE (12:05)
[2022-04-18 12:28] VITALS: BP 118/41
[2022-04-19] MEDS ORDERED: PRED10TA23 PO (09:31)
== END 2022-04-18 12:54 | disposition home or self-care (01) ==
LOC: ER 08:54
DX: J44.1 Chronic obstructive pulmonary disease with (acute) exacerbation (principal); E78.00 Pure hypercholesterolemia, unspecified; Z88.5 Allergy status to narcotic agent; Z88.8 Allergy status to other drugs, medicaments and biological substances; Z98.890 Other specified postprocedural states
CPT/HCPCS: 36415; 71045; 80053; 83880; 84484; 85025; 93005; 94640; 96365; 96366; 99285; J3475; 94760; A7015

== ENCOUNTER 2022-04-30 18:53 | Emergency (ER) | payer MEDICARE, MEDICAID ==
[~2022-04-30] VITALS: Ht 172.7 cm; Wt 125.5 kg
[~2022-04-30 18:53] MED LIST changes: +PRED10TA23 PO
[2022-04-30 19:08] VITALS: BP 108/52
[2022-04-30 19:45] LABS: BASOPHILS % (AUTO) 0.2 % (0-1); EOSINOPHILS % (AUTO) 0.2 % (0-6); HEMATOCRIT 35.9 % (35.0-45.0); HEMOGLOBIN 11.6 g/dl (12.0-16.0); LYMPHOCYTES % (AUTO) 16.6 % (21-51); MEAN CORPUSCULAR HEMOGLOBIN 28.7 PG (27.0-31.0); MEAN CORPUSCULAR HGB CONC 32.4 g/dL (33.0-36.5); MEAN CORPUSCULAR VOLUME 88.8 FL (78-98); MEAN PLATELET VOLUME 7.5 FL (7.4-10.4); MONOCYTES # (AUTO) 0.8 X10'3 (0-0.9); MONOCYTES % (AUTO) 6.3 % (2-12); NEUTROPHILS # (AUTO) 9.4 X10'3 (1.8-7.7); NEUTROPHILS % (AUTO) 76.7 % (42-75); PLATELET COUNT 220 X10'3 (140-440); RED BLOOD COUNT 4.05 X10'6 (4.20-5.60); WHITE BLOOD COUNT 12.2 X10'3 (4.5-11.0)
[2022-04-30 20:19] LABS: ALANINE AMINOTRANSFERASE 24 U/L (12-78); ALBUMIN 3.3 G/DL (3.4-5.0); ALKALINE PHOSPHATASE 64 IU/L (46-116); ANION GAP 12 (8-16); ASPARTATE AMINO TRANSFERASE 12 U/L (10-37); BILIRUBIN,TOTAL 0.2 MG/DL (0.1-1.0); BLOOD UREA NITROGEN 22 MG/DL (7-18); BUN/CREATININE RATIO 23.4 (6.6-38.0); CALCIUM 8.7 MG/DL (8.5-10.1); CHLORIDE 108 MMOL/L (99-107); CREATININE 0.94 MG/DL (0.40-0.90); GLUCOSE 117 MG/DL (70-104); POTASSIUM 3.5 MMOL/L (3.5-5.1); SODIUM 146 MMOL/L (135-145); TOTAL CARBON DIOXIDE 25.6 MMOL/L (24-32); TOTAL PROTEIN 6.7 G/DL (6.4-8.2); eGFR 59 ML/MIN
== END 2022-04-30 23:41 | disposition left against medical advice (07) ==
LOC: ER 18:54
DX: F41.9 Anxiety disorder, unspecified (principal); Z53.21 Procedure and treatment not carried out due to patient leaving prior to being seen by health care provider
CPT/HCPCS: 36415; 80053; 84484; 85025

== ENCOUNTER 2022-07-11 15:25 | Emergency (ER) | payer MEDICARE, MEDICAID ==
[~2022-07-11] VITALS: Ht 170.2 cm; Wt 100.0 kg
[~2022-07-11 15:25] MED LIST changes: +ALBU17AE26 INH; +BUDE10.22 INH; -BUPR-113 PO; +BUPR-317 PO; -BUSP10TA11 PO; +BUSP15TA7 PO; -GABA300C PO; +IBUP-1986 PO; +LORA-268 PO; -LORA-269 PO; -PRED10TA23 PO
[2022-07-11 15:46] VITALS: BP 122/68
[2022-07-11] MEDS ORDERED: LORazepam 0.5 MG tablet PO ONE (17:35)
== END 2022-07-11 18:44 | disposition home or self-care (01) ==
LOC: ER 15:25
DX: U07.1 COVID-19 (principal); E78.00 Pure hypercholesterolemia, unspecified; J44.9 Chronic obstructive pulmonary disease, unspecified; G89.29 Other chronic pain; M54.50 Low back pain, unspecified; F17.200 Nicotine dependence, unspecified, uncomplicated; Z00.00 Encounter for general adult medical examination without abnormal findings; Z88.5 Allergy status to narcotic agent; Z88.8 Allergy status to other drugs, medicaments and biological substances; Z98.890 Other specified postprocedural states
CPT/HCPCS: 99283

== ENCOUNTER 2022-07-24 21:58 | Emergency (ER) | payer MEDICARE, MEDICAID ==
[~2022-07-24] VITALS: Ht 172.7 cm; Wt 125.0 kg
[2022-07-24 22:34] LABS: BASOPHILS % (AUTO) 0.2 % (0-1); EOSINOPHILS # (AUTO) 0.1 X10'3 (0-0.9); EOSINOPHILS % (AUTO) 1.4 % (0-6); HEMATOCRIT 36.7 % (35.0-45.0); HEMOGLOBIN 12.2 g/dl (12.0-16.0); LYMPHOCYTES # (AUTO) 1.9 X10'3 (1.1-4.8); LYMPHOCYTES % (AUTO) 20.2 % (21-51); MEAN CORPUSCULAR HEMOGLOBIN 28.9 PG (27.0-31.0); MEAN CORPUSCULAR HGB CONC 33.2 g/dL (33.0-36.5); MEAN PLATELET VOLUME 7.4 FL (7.4-10.4); MONOCYTES # (AUTO) 0.8 X10'3 (0-0.9); MONOCYTES % (AUTO) 8.3 % (2-12); NEUTROPHILS # (AUTO) 6.7 X10'3 (1.8-7.7); NEUTROPHILS % (AUTO) 69.9 % (42-75); PLATELET COUNT 224 X10'3 (140-440); RED BLOOD COUNT 4.22 X10'6 (4.20-5.60); WHITE BLOOD COUNT 9.5 X10'3 (4.5-11.0)
[2022-07-24 22:47] LABS: ALANINE AMINOTRANSFERASE 19 U/L (12-78); ALBUMIN 3.5 G/DL (3.4-5.0); ALKALINE PHOSPHATASE 73 IU/L (46-116); ANION GAP 10 (8-16); ASPARTATE AMINO TRANSFERASE 12 U/L (10-37); BILIRUBIN,TOTAL 0.4 MG/DL (0.1-1.0); BLOOD UREA NITROGEN 20 MG/DL (7-18); BUN/CREATININE RATIO 17.7 (6.6-38.0); CHLORIDE 104 MMOL/L (99-107); CREATININE 1.13 MG/DL (0.40-0.90); GLUCOSE 112 MG/DL (70-104); POTASSIUM 3.5 MMOL/L (3.5-5.1); SODIUM 140 MMOL/L (135-145); eGFR 48 ML/MIN
[2022-07-25 03:24] LABS: CLARITY,URINE SLIGHTLY CLOUDY (Clear); COLOR,URINE YELLOW (Yellow); GLUCOSE, URINE NEGATIVE (Neg); KETONES,URINE NEGATIVE (Neg); LEUKOCYTE ESTERASE ,URINE NEGATIVE (Neg); NITRITES, URINE NEGATIVE (Neg); OCCULT BLOOD,URINE NEGATIVE (Neg); PH,URINE 5.5 (4.8-8.0); PROTEIN,URINE NEGATIVE (Neg); UROBILINOGEN,URINE 0.2 E.U/dL (0.2-1.0)
[2022-07-25 03:37] LABS: UA COLLECTION TYPE CLN CATCH MIDSTREAM
[2022-07-25 03:55] LABS: COARSE GRANULAR CAST 0-3 /LPF (NEGATIVE); SQUAMOUS EPITHELIAL CELL,UR MANY /LPF (FEW)
[2022-07-25 03:56] LABS: BACTERIA,URINE FEW /HPF (Neg); WBC,URINE 0-4 /HPF (0-4)
[2022-07-25 04:22] VITALS: BP 128/67
== END 2022-07-25 04:24 | disposition home or self-care (01) ==
LOC: ER 21:59
DX: M70.21 Olecranon bursitis, right elbow (principal); M25.521 Pain in right elbow; Z88.8 Allergy status to other drugs, medicaments and biological substances; I10 Essential (primary) hypertension; E78.00 Pure hypercholesterolemia, unspecified; J44.9 Chronic obstructive pulmonary disease, unspecified; G89.29 Other chronic pain; M54.50 Low back pain, unspecified; Z88.5 Allergy status to narcotic agent; W19.XXXA Unspecified fall, initial encounter; Y93.89 Activity, other specified; Y92.89 Other specified places as the place of occurrence of the external cause; Y99.8 Other external cause status
CPT/HCPCS: 36415; 71045; 73080; 73200; 80053; 81001; 83880; 84484; 85025; 93005; 99285

== ENCOUNTER 2022-07-25 15:51 | Emergency (ER) | payer MEDICARE, MEDICAID ==
[~2022-07-25] VITALS: Ht 172.7 cm; Wt 123.0 kg
[2022-07-25 16:32] VITALS: BP 121/67
[2022-07-25] MEDS ORDERED: ibuprofen tablet 400 MG TABLET PO ONE (17:40)
--- NOTE | 2022-07-25 19:30 | NUR ---
Note altaone in EDM - 07/25/22 at 1935 by ELTON JULIANNE called [phone] to file an APS report since pt lives alone at home. Spoke with Jessica, social media coordinator. Provided Jessica with pt's address, and background information. Advised Jessica that pt will go back to [facility] after this ED discharge, but she ultimately lives home by herself and she has been having increased incidence of falling at home.
--- NOTE | 2022-07-25 19:36 | NUR ---
RN called [phone] to file an APS report since pt lives alone at home. Spoke with Jessica, socially responsible investment adviser. Provided Jessica with pt's address, and background information. Advised Jessica that pt will go back to [facility] after this ED discharge, but she ultimately lives home by herself and she has been having increased incidence of falling at home.
--- NOTE | 2022-07-25 20:07 | NUR ---
CAREGIVER CALLED FOR TRANSPORTATION. CAREGIVER UNAVAILABLE. PRESCIOUS CARGO UNAVAILABE. [facility] CALLED FOR TRANSPORTATION ETA 15 MINUTES.
--- NOTE | 2022-07-25 20:23 | NUR ---
[facility] AT BEDSIDE FOR TRANPORT.
== END 2022-07-25 20:30 | disposition home or self-care (01) ==
LOC: ER 15:52
DX: M25.562 Pain in left knee (principal); M79.642 Pain in left hand; E78.00 Pure hypercholesterolemia, unspecified; I10 Essential (primary) hypertension; J44.9 Chronic obstructive pulmonary disease, unspecified; G89.29 Other chronic pain; M54.50 Low back pain, unspecified; Z88.5 Allergy status to narcotic agent; Z88.8 Allergy status to other drugs, medicaments and biological substances; Z98.890 Other specified postprocedural states; W19.XXXA Unspecified fall, initial encounter; Y93.89 Activity, other specified; Y92.89 Other specified places as the place of occurrence of the external cause; Y99.8 Other external cause status
CPT/HCPCS: 73130; 99284; A4353

== ENCOUNTER 2022-08-14 19:22 | Emergency (ER) | payer MEDICARE, MEDICAID ==
[~2022-08-14] VITALS: Ht 175.3 cm; Wt 109.0 kg
[~2022-08-14 19:22] MED LIST changes: +PARO-153 PO; +PARO-154 PO; -PARO10TA85 PO; -PARO40TA PO
[2022-08-15 11:39] VITALS: BP 166/84
--- NOTE | 2022-08-15 12:01 | NUR ---
ATTEMPTED TO CALL PT'S MOLD FILLER TO INFORM THAT PT HAS BEEN DC AND NEEDS A RIDE HOME, VOICE MAILBOX WAS NOT SET UP AND UNABLE TO LEAVE A MSG. CALLED PT'S SISTER FOR FOR TRANSPORTATION HOME AND SISTER IS ILL AND UNABLE TO COME AND TAKE PT HOME. RAMU LOMELI WAS CALLED FOR TRANSPORTATION HOME.
== END 2022-08-15 12:09 | disposition home or self-care (01) ==
LOC: ER 19:22
DX: R53.1 Weakness (principal); E78.00 Pure hypercholesterolemia, unspecified; I10 Essential (primary) hypertension; J44.9 Chronic obstructive pulmonary disease, unspecified; G89.29 Other chronic pain; F32.A Depression, unspecified; F20.9 Schizophrenia, unspecified; Z87.01 Personal history of pneumonia (recurrent); Z86.2 Personal history of diseases of the blood and blood-forming organs and certain disorders involving the immune mechanism; Z87.440 Personal history of urinary (tract) infections; Z60.2 Problems related to living alone; Z88.8 Allergy status to other drugs, medicaments and biological substances; Z79.899 Other long term (current) drug therapy
CPT/HCPCS: 99284

== ENCOUNTER 2022-10-03 11:22 | Emergency (ER) | payer MEDICARE, MEDICAID ==
[~2022-10-03] VITALS: Ht 175.3 cm; Wt 118.0 kg
[2022-10-03 11:38] VITALS: BP 133/76
[2022-10-03] MEDS: LORazepam 1 MG tablet PO ONE (11:54)
== END 2022-10-03 12:18 | disposition home or self-care (01) ==
LOC: ER 11:23
DX: F41.9 Anxiety disorder, unspecified (principal); I10 Essential (primary) hypertension; E78.00 Pure hypercholesterolemia, unspecified; J44.9 Chronic obstructive pulmonary disease, unspecified; G89.29 Other chronic pain; M54.50 Low back pain, unspecified; Z88.5 Allergy status to narcotic agent; Z88.8 Allergy status to other drugs, medicaments and biological substances
CPT/HCPCS: 99284

== ENCOUNTER 2023-02-27 09:16 | Emergency (ER) | payer MEDICARE, MEDICAID ==
[~2023-02-27] VITALS: Ht 175.3 cm; Wt 140.0 kg
[2023-02-27] MEDS ORDERED: LORazepam 1 MG tablet PO ONE (09:35)
[2023-02-27 09:41] VITALS: BP 173/89
--- NOTE | 2023-02-27 09:50 | NUR ---
Attempted to call caregiver and patient sister to arrange transport home, neither available. Taxi called for patient - will be here in half hour to take patient home.
== END 2023-02-27 10:01 | disposition home or self-care (01) ==
LOC: ER 09:16
DX: F41.9 Anxiety disorder, unspecified (principal); J44.9 Chronic obstructive pulmonary disease, unspecified; I10 Essential (primary) hypertension; E78.00 Pure hypercholesterolemia, unspecified; G89.29 Other chronic pain; M54.9 Dorsalgia, unspecified; F32.A Depression, unspecified; F20.9 Schizophrenia, unspecified; Z88.5 Allergy status to narcotic agent; Z88.8 Allergy status to other drugs, medicaments and biological substances; Z79.899 Other long term (current) drug therapy
CPT/HCPCS: 71045; 99284

== ENCOUNTER 2023-03-03 10:36 | Emergency (ER) | payer MEDICARE, MEDICAID ==
[~2023-03-03] VITALS: Ht 175.3 cm; Wt 125.0 kg
[2023-03-03] MEDS ORDERED: LORazepam 1 MG tablet PO ONE (11:00)
[2023-03-03 11:23] VITALS: BP 176/98
== END 2023-03-03 11:24 | disposition home or self-care (01) ==
LOC: ER 10:37
DX: F41.9 Anxiety disorder, unspecified (principal); E78.00 Pure hypercholesterolemia, unspecified; I10 Essential (primary) hypertension; J44.9 Chronic obstructive pulmonary disease, unspecified; Z88.5 Allergy status to narcotic agent; Z88.8 Allergy status to other drugs, medicaments and biological substances; Z98.890 Other specified postprocedural states
CPT/HCPCS: 93005; 99283

== ENCOUNTER 2023-03-07 13:55 | Emergency (ER) | payer MEDICARE, MEDICAID ==
[~2023-03-07] VITALS: Ht 175.3 cm; Wt 125.0 kg
[2023-03-07 14:03] VITALS: BP 157/71
--- NOTE | 2023-03-07 14:06 | NUR ---
PT ALREADY SEEN BY MATHIEU MCINTYRE ,PROVIDER IS GOING TO PUT THE ORDERS IN.
[2023-03-07] MEDS ORDERED: methylPREDNISolone sod succ 125mg/2ml vial IV ONE (14:10)
[2023-03-07] MEDS ORDERED: albuterol 2.5 MG/3 ML nebule NEB ONE (14:10)
[2023-03-07 14:39] LABS: BASOPHILS % (AUTO) 0.2 % (0-1); EOSINOPHILS % (AUTO) 0.5 % (0-6); HEMOGLOBIN 13.6 g/dl (12.0-16.0); LYMPHOCYTES # (AUTO) 1.6 X10'3 (1.1-4.8); LYMPHOCYTES % (AUTO) 17.9 % (21-51); MEAN CORPUSCULAR HEMOGLOBIN 29.7 PG (27.0-31.0); MEAN CORPUSCULAR VOLUME 87.3 FL (78-98); MEAN PLATELET VOLUME 7.4 FL (7.4-10.4); MONOCYTES # (AUTO) 0.6 X10'3 (0-0.9); MONOCYTES % (AUTO) 6.8 % (2-12); NEUTROPHILS # (AUTO) 6.8 X10'3 (1.8-7.7); NEUTROPHILS % (AUTO) 74.6 % (42-75); PLATELET COUNT 196 X10'3 (140-440); RED BLOOD COUNT 4.58 X10'6 (4.20-5.60); RED CELL DISTRIBUTION WIDTH 14.1 % (11.5-14.5); WHITE BLOOD COUNT 9.1 X10'3 (4.5-11.0)
[2023-03-07 14:51] LABS: ALANINE AMINOTRANSFERASE 17 U/L (12-78); ALBUMIN 3.7 G/DL (3.4-5.0); ALBUMIN/GLOBULIN RATIO 1.1 (1.1-1.5); ALKALINE PHOSPHATASE 81 IU/L (46-116); ANION GAP 8 (8-16); ASPARTATE AMINO TRANSFERASE 12 U/L (10-37); BILIRUBIN,TOTAL 0.3 MG/DL (0.1-1.0); BLOOD UREA NITROGEN 10 MG/DL (7-18); BUN/CREATININE RATIO 9.3 (10.0-20.0); CHLORIDE 106 MMOL/L (99-107); CREATININE 1.07 MG/DL (0.40-0.90); GLUCOSE 112 MG/DL (70-104); POTASSIUM 3.9 MMOL/L (3.5-5.1); SODIUM 144 MMOL/L (135-145); TOTAL CARBON DIOXIDE 29.9 MMOL/L (24-32); TOTAL PROTEIN 7.1 G/DL (6.4-8.2); eGFR 51 ML/MIN
[2023-03-07] MEDS ORDERED: predniSONE 20 mg tablet PO ONE (15:40)
[2023-03-07] MEDS ORDERED: LORazepam 1 MG tablet PO ONE (15:40)
[2023-03-07] MEDS ORDERED: PRED10TA PO (16:13)
== END 2023-03-07 16:58 | disposition home or self-care (01) ==
LOC: ER 13:55
DX: J44.1 Chronic obstructive pulmonary disease with (acute) exacerbation (principal); F41.9 Anxiety disorder, unspecified; R06.02 Shortness of breath; E78.00 Pure hypercholesterolemia, unspecified; I10 Essential (primary) hypertension; Z88.8 Allergy status to other drugs, medicaments and biological substances; Z98.890 Other specified postprocedural states
CPT/HCPCS: 36415; 71045; 80053; 83880; 84484; 85025; 94640; 99284; J7512; 94760; 99285

== ENCOUNTER 2023-03-09 17:39 | Emergency (ER) | payer MEDICARE, MEDICAID ==
[~2023-03-09] VITALS: Ht 175.3 cm; Wt 106.6 kg
[~2023-03-09 17:39] MED LIST changes: +PRED10TA PO
== END 2023-03-09 20:57 | disposition left against medical advice (07) ==
LOC: ER 17:39
DX: F41.9 Anxiety disorder, unspecified (principal); Z53.21 Procedure and treatment not carried out due to patient leaving prior to being seen by health care provider
CPT/HCPCS: 99281

== ENCOUNTER 2023-03-12 00:17 | Emergency (ER) | payer MEDICARE, MEDICAID ==
[~2023-03-12] VITALS: Ht 175.3 cm; Wt 125.0 kg
[2023-03-12 00:42] LABS: BASOPHILS # (AUTO) 0.1 X10'3 (0-0.2); BASOPHILS % (AUTO) 0.6 % (0-1); EOSINOPHILS % (AUTO) 0.3 % (0-6); HEMATOCRIT 38.2 % (35.0-45.0); HEMOGLOBIN 12.9 g/dl (12.0-16.0); LYMPHOCYTES % (AUTO) 17.2 % (21-51); MEAN CORPUSCULAR HEMOGLOBIN 29.4 PG (27.0-31.0); MEAN CORPUSCULAR HGB CONC 33.8 g/dL (33.0-36.5); MEAN CORPUSCULAR VOLUME 86.9 FL (78-98); MEAN PLATELET VOLUME 7.5 FL (7.4-10.4); MONOCYTES # (AUTO) 0.7 X10'3 (0-0.9); NEUTROPHILS % (AUTO) 75.9 % (42-75); PLATELET COUNT 187 X10'3 (140-440); RED BLOOD COUNT 4.39 X10'6 (4.20-5.60); RED CELL DISTRIBUTION WIDTH 14.3 % (11.5-14.5); WHITE BLOOD COUNT 11.9 X10'3 (4.5-11.0)
[2023-03-12] MEDS ORDERED: LORazepam 1 MG tablet PO ONE (00:45)
[2023-03-12 00:48] LABS: ALANINE AMINOTRANSFERASE 15 U/L (12-78); ALBUMIN 3.5 G/DL (3.4-5.0); ALKALINE PHOSPHATASE 73 IU/L (46-116); ANION GAP 11 (8-16); ASPARTATE AMINO TRANSFERASE 12 U/L (10-37); BILIRUBIN,TOTAL 0.2 MG/DL (0.1-1.0); BLOOD UREA NITROGEN 18 MG/DL (7-18); BUN/CREATININE RATIO 20.2 (10.0-20.0); CALCIUM 8.9 MG/DL (8.5-10.1); CHLORIDE 105 MMOL/L (99-107); CREATININE 0.89 MG/DL (0.40-0.90); GLUCOSE 114 MG/DL (70-104); SODIUM 140 MMOL/L (135-145); TOTAL CARBON DIOXIDE 23.8 MMOL/L (24-32); TOTAL PROTEIN 6.9 G/DL (6.4-8.2); eGFR 63 ML/MIN
[2023-03-12] MEDS ORDERED: LORA-269 PO (01:09)
[2023-03-12 01:46] VITALS: BP 161/110
== END 2023-03-12 01:50 | disposition home or self-care (01) ==
LOC: ER 00:18
DX: F41.9 Anxiety disorder, unspecified (principal); J44.9 Chronic obstructive pulmonary disease, unspecified; I10 Essential (primary) hypertension; G89.29 Other chronic pain; M54.9 Dorsalgia, unspecified; F31.9 Bipolar disorder, unspecified; F20.9 Schizophrenia, unspecified; E78.00 Pure hypercholesterolemia, unspecified; Z88.8 Allergy status to other drugs, medicaments and biological substances; Z88.5 Allergy status to narcotic agent; Z79.899 Other long term (current) drug therapy
CPT/HCPCS: 71045; 80053; 83880; 84484; 85025; 93005; 99285

== ENCOUNTER 2023-03-23 09:14 | Emergency (ER) | payer MEDICARE, MEDICAID ==
[~2023-03-23] VITALS: Ht 175.3 cm; Wt 104.5 kg
[~2023-03-23 09:14] MED LIST changes: +LORA-269 PO
[2023-03-23] MEDS ORDERED: NYST1000 PO (09:31)
[2023-03-23 09:52] VITALS: BP 137/71
[2023-03-23] MEDS ORDERED: HYDROcodone/acetaminophen 5mg/325mg tablet PO ONE (09:55)
[2023-03-23] MEDS ORDERED: ondansetron 4mg rapidly disintigrating tab PO ONE (09:55)
--- NOTE | 2023-03-23 10:07 | NUR ---
[facility] CALLED FOR PT TO BE TRANSPORTED BACK TO [facility] ADDRESS CONFIRMED.
== END 2023-03-23 10:44 | disposition home or self-care (01) ==
LOC: ER 09:16
DX: S10.93XA Contusion of unspecified part of neck, initial encounter (principal); E78.00 Pure hypercholesterolemia, unspecified; J44.9 Chronic obstructive pulmonary disease, unspecified; G89.29 Other chronic pain; M54.9 Dorsalgia, unspecified; F31.9 Bipolar disorder, unspecified; F20.9 Schizophrenia, unspecified; Z90.49 Acquired absence of other specified parts of digestive tract; Z88.8 Allergy status to other drugs, medicaments and biological substances; Z88.5 Allergy status to narcotic agent; Z79.899 Other long term (current) drug therapy; Z79.1 Long term (current) use of non-steroidal anti-inflammatories (NSAID); Z79.2 Long term (current) use of antibiotics; W18.39XA Other fall on same level, initial encounter; Y93.89 Activity, other specified; Y92.89 Other specified places as the place of occurrence of the external cause; Y99.8 Other external cause status
CPT/HCPCS: 99284

== ENCOUNTER 2023-04-04 13:26 | Emergency (ER) | payer MEDICARE, MEDICAID ==
[~2023-04-04] VITALS: Ht 175.3 cm; Wt 125.0 kg
[2023-04-04 13:33] VITALS: BP 143/82; PULSE 82; RESP 20; TEMP 98.4; O2SAT 94
[2023-04-04] MEDS ORDERED: LORA-269 PO (13:35)
[2023-04-04] MEDS ORDERED: LORazepam 1 MG tablet PO ONE (13:40)
== END 2023-04-04 14:08 | disposition home or self-care (01) ==
LOC: ER 13:26
DX: F41.9 Anxiety disorder, unspecified (principal); J44.9 Chronic obstructive pulmonary disease, unspecified; E78.00 Pure hypercholesterolemia, unspecified; I10 Essential (primary) hypertension; G89.29 Other chronic pain; M54.9 Dorsalgia, unspecified; F20.9 Schizophrenia, unspecified; Z88.5 Allergy status to narcotic agent; Z88.8 Allergy status to other drugs, medicaments and biological substances; Z79.899 Other long term (current) drug therapy
CPT/HCPCS: 99284

== ENCOUNTER 2023-04-08 14:46 | Emergency (ER) | payer MEDICARE, MEDICAID ==
[~2023-04-08] VITALS: Ht 175.3 cm; Wt 125.0 kg
[2023-04-08 15:50] VITALS: TEMP 97.9
[2023-04-08 16:41] VITALS: BP 139/79; PULSE 76; RESP 14; O2SAT 93
[2023-04-08 16:48] LABS: BASOPHILS % (AUTO) 0.4 % (0-1); EOSINOPHILS # (AUTO) 0.1 X10'3 (0-0.9); EOSINOPHILS % (AUTO) 0.6 % (0-6); HEMATOCRIT 38.4 % (35.0-45.0); LYMPHOCYTES # (AUTO) 1.8 X10'3 (1.1-4.8); LYMPHOCYTES % (AUTO) 20.3 % (21-51); MEAN CORPUSCULAR HEMOGLOBIN 29.5 PG (27.0-31.0); MEAN CORPUSCULAR HGB CONC 33.7 g/dL (33.0-36.5); MEAN CORPUSCULAR VOLUME 87.5 FL (78-98); MEAN PLATELET VOLUME 7.6 FL (7.4-10.4); MONOCYTES # (AUTO) 0.7 X10'3 (0-0.9); MONOCYTES % (AUTO) 7.6 % (2-12); NEUTROPHILS # (AUTO) 6.3 X10'3 (1.8-7.7); NEUTROPHILS % (AUTO) 71.1 % (42-75); PLATELET COUNT 217 X10'3 (140-440); RED BLOOD COUNT 4.39 X10'6 (4.20-5.60); RED CELL DISTRIBUTION WIDTH 14.2 % (11.5-14.5); WHITE BLOOD COUNT 8.9 X10'3 (4.5-11.0)
[2023-04-08 17:01] LABS: ALANINE AMINOTRANSFERASE 23 U/L (12-78); ALBUMIN 3.5 G/DL (3.4-5.0); ALKALINE PHOSPHATASE 73 IU/L (46-116); ANION GAP 8 (8-16); ASPARTATE AMINO TRANSFERASE 15 U/L (10-37); BILIRUBIN,TOTAL 0.3 MG/DL (0.1-1.0); BLOOD UREA NITROGEN 14 MG/DL (7-18); BUN/CREATININE RATIO 17.1 (10.0-20.0); CALCIUM 9.2 MG/DL (8.5-10.1); CHLORIDE 108 MMOL/L (99-107); CREATININE 0.82 MG/DL (0.40-0.90); GLUCOSE 107 MG/DL (70-104); POTASSIUM 3.8 MMOL/L (3.5-5.1); SODIUM 142 MMOL/L (135-145); TOTAL CARBON DIOXIDE 25.6 MMOL/L (24-32); TOTAL PROTEIN 6.9 G/DL (6.4-8.2); eGFR 69 ML/MIN
[2023-04-08 17:07] LABS: MAGNESIUM 2.1 MG/DL (1.5-2.4)
== END 2023-04-08 17:48 | disposition home or self-care (01) ==
LOC: ER 14:47
DX: F41.9 Anxiety disorder, unspecified (principal); R07.89 Other chest pain; E78.00 Pure hypercholesterolemia, unspecified; I10 Essential (primary) hypertension; J44.9 Chronic obstructive pulmonary disease, unspecified; Z88.8 Allergy status to other drugs, medicaments and biological substances; Z88.5 Allergy status to narcotic agent; Z79.899 Other long term (current) drug therapy; Z79.1 Long term (current) use of non-steroidal anti-inflammatories (NSAID); Z98.890 Other specified postprocedural states
CPT/HCPCS: 36415; 71045; 80053; 83735; 83880; 84484; 85025; 93005; 99285

== ENCOUNTER 2023-04-13 06:37 | Emergency (ER) | payer MEDICARE, MEDICAID ==
[~2023-04-13] VITALS: Ht 175.3 cm; Wt 113.6 kg
[2023-04-13 06:47] VITALS: BP 145/88; PULSE 90; RESP 17; O2SAT 95
== END 2023-04-13 13:10 | disposition home or self-care (01) ==
LOC: ER 06:37
DX: S80.01XA Contusion of right knee, initial encounter (principal); M25.561 Pain in right knee; E78.00 Pure hypercholesterolemia, unspecified; I10 Essential (primary) hypertension; J44.9 Chronic obstructive pulmonary disease, unspecified; G89.29 Other chronic pain; Z87.440 Personal history of urinary (tract) infections; Z90.49 Acquired absence of other specified parts of digestive tract; Z79.899 Other long term (current) drug therapy; Z88.8 Allergy status to other drugs, medicaments and biological substances; W19.XXXA Unspecified fall, initial encounter; Y93.89 Activity, other specified; Y92.89 Other specified places as the place of occurrence of the external cause; Y99.8 Other external cause status
CPT/HCPCS: 73560; 99284

== ENCOUNTER 2023-05-04 11:17 | Emergency (ER) | payer MEDICARE, MEDICAID | END 2023-05-04 12:01 | disposition left against medical advice (07) | LOC: ER 11:20 | DX: F41.9 Anxiety disorder, unspecified (principal); Z53.21 Procedure and treatment not carried out due to patient leaving prior to being seen by health care provider ==

== ENCOUNTER 2023-05-13 18:04 | Emergency (ER) | payer MEDICARE, BC, MEDICAID ==
[~2023-05-13] VITALS: Ht 175.3 cm; Wt 124.0 kg
[2023-05-13 18:09] VITALS: TEMP 98
[2023-05-13 19:00] VITALS: BP 160/87; PULSE 71; RESP 16; O2SAT 95
[2023-05-13] MEDS ORDERED: LORazepam 2 mg/ml vial IM ONE (20:15)
[2023-05-13] MEDS ORDERED: HYDR-3686 PO (20:22)
== END 2023-05-13 20:33 | disposition home or self-care (01) ==
LOC: ER 18:05
DX: F41.9 Anxiety disorder, unspecified (principal); E78.00 Pure hypercholesterolemia, unspecified; I10 Essential (primary) hypertension; J44.9 Chronic obstructive pulmonary disease, unspecified; F31.9 Bipolar disorder, unspecified; F20.9 Schizophrenia, unspecified; Z88.1 Allergy status to other antibiotic agents; Z88.8 Allergy status to other drugs, medicaments and biological substances; Z79.899 Other long term (current) drug therapy
CPT/HCPCS: 96372; 99284; J2060

== ENCOUNTER 2023-05-16 02:15 | Emergency (ER) | payer MEDICARE, BC, MEDICAID ==
[~2023-05-16] VITALS: Ht 175.3 cm; Wt 125.0 kg
[~2023-05-16 02:15] MED LIST changes: +HYDR-3686 PO
[2023-05-16 02:19] VITALS: TEMP 97.9
[2023-05-16 03:07] VITALS: BP 130/71; PULSE 65; RESP 17; O2SAT 93
[2023-05-16] MEDS ORDERED: LORazepam 1 MG tablet PO ONE (03:35)
[2023-05-16] MEDS ORDERED: metoclopramide 10mg tablet PO ONE (03:35)
== END 2023-05-16 04:16 | disposition home or self-care (01) ==
LOC: ER 02:15
DX: F41.9 Anxiety disorder, unspecified (principal); E78.00 Pure hypercholesterolemia, unspecified; I10 Essential (primary) hypertension; J44.9 Chronic obstructive pulmonary disease, unspecified; Z88.8 Allergy status to other drugs, medicaments and biological substances; Z88.5 Allergy status to narcotic agent; Z79.899 Other long term (current) drug therapy; Z98.890 Other specified postprocedural states
CPT/HCPCS: 99284

== ENCOUNTER 2023-06-22 14:57 | Emergency (ER) | payer MEDICARE, BC, MEDICAID ==
[~2023-06-22] VITALS: Ht 175.3 cm; Wt 131.8 kg
[~2023-06-22 14:57] MED LIST changes: -HYDR-3686 PO
--- NOTE | 2023-06-22 15:20 | NUR ---
tech attempted to copy EKG doctor told jeff no.
--- NOTE | 2023-06-22 15:26 | NUR ---
DR. DEAN AT BEDSIDE.
[2023-06-22] MEDS ORDERED: normal saline 1000ML IV soln IVB ONE (15:35)
--- NOTE | 2023-06-22 16:11 | NUR ---
RN ATTEMPTING TO GET IV AT THIS TIME. PT IS HARD STICK. ALSO, PT REQ TO USE BSC.
[2023-06-22 16:20] LABS: ALANINE AMINOTRANSFERASE 23 U/L (12-78); ALBUMIN 3.5 G/DL (3.4-5.0); ALBUMIN/GLOBULIN RATIO 1.1 (1.1-1.5); ALKALINE PHOSPHATASE 72 IU/L (46-116); ANION GAP 9 (8-16); ASPARTATE AMINO TRANSFERASE 22 U/L (10-37); BILIRUBIN,TOTAL 0.5 MG/DL (0.1-1.0); BLOOD UREA NITROGEN 10 MG/DL (7-18); BUN/CREATININE RATIO 10.9 (10.0-20.0); CALCIUM 9.2 MG/DL (8.5-10.1); CHLORIDE 101 MMOL/L (99-107); CREATININE 0.92 MG/DL (0.40-0.90); GLUCOSE 83 MG/DL (70-104); POTASSIUM 3.5 MMOL/L (3.5-5.1); SODIUM 135 MMOL/L (135-145); TOTAL CARBON DIOXIDE 24.6 MMOL/L (24-32); TOTAL PROTEIN 6.8 G/DL (6.4-8.2); eCRCL 60 ML/MIN; eGFR 61 ML/MIN
[2023-06-22 16:21] LABS: BASOPHILS % (AUTO) 0.2 % (0-1); EOSINOPHILS % (AUTO) 0.2 % (0-6); HEMATOCRIT 38.8 % (35.0-45.0); LYMPHOCYTES # (AUTO) 1.3 X10'3 (1.1-4.8); LYMPHOCYTES % (AUTO) 14.3 % (21-51); MEAN CORPUSCULAR HEMOGLOBIN 29.6 PG (27.0-31.0); MEAN CORPUSCULAR HGB CONC 33.5 g/dL (33.0-36.5); MEAN CORPUSCULAR VOLUME 88.4 FL (78-98); MEAN PLATELET VOLUME 8.1 FL (7.4-10.4); MONOCYTES # (AUTO) 0.7 X10'3 (0-0.9); NEUTROPHILS # (AUTO) 6.9 X10'3 (1.8-7.7); NEUTROPHILS % (AUTO) 77.3 % (42-75); PLATELET COUNT 187 X10'3 (140-440); RED BLOOD COUNT 4.38 X10'6 (4.20-5.60); RED CELL DISTRIBUTION WIDTH 14.2 % (11.5-14.5); WHITE BLOOD COUNT 8.9 X10'3 (4.5-11.0)
[2023-06-22 16:29] LABS: PRO BRAIN NATRIURETIC PEPTIDE 100 PG/ML (0-125)
--- NOTE | 2023-06-22 16:38 | NUR ---
2ND RN ATTEMPTING IV AT THIS TIME. SMALL AMT OF URINE COLLECTED AND SENT TO LAB.
--- NOTE | 2023-06-22 17:11 | NUR ---
RN CONTACTED LAB AND THEY NEED MORE URINE FOR SPECIMEN. NEW SPECIMEN WILL BE COLLECTED AND SENT TO LAB. PT BEING ASSISTED TO BSC AT THIS TIME.
[2023-06-22] MEDS ORDERED: aspirin 81mg tab.chew PO ONE (17:15)
[2023-06-22 17:30] LABS: BILIRUBIN,URINE NEGATIVE (Neg); CLARITY,URINE CLEAR (Clear); COLOR,URINE YELLOW (Yellow); GLUCOSE, URINE NEGATIVE (Neg); KETONES,URINE 15 mg/dl (Neg); LEUKOCYTE ESTERASE ,URINE NEGATIVE (Neg); NITRITES, URINE NEGATIVE (Neg); OCCULT BLOOD,URINE MODERATE (Neg); PROTEIN,URINE NEGATIVE (Neg); UROBILINOGEN,URINE 0.2 E.U/dL (0.2-1.0)
[2023-06-22 17:33] LABS: UA COLLECTION TYPE VOIDED
[2023-06-22 17:36] LABS: BACTERIA,URINE NONE SEEN /HPF (Neg); RBC,URINE 0-2 /HPF (0-2); WBC,URINE NONE SEEN /HPF (0-4)
[2023-06-22 17:37] LABS: MUCUS STRANDS FEW /LPF (Neg); SQUAMOUS EPITHELIAL CELL,UR FEW /LPF (FEW)
[2023-06-22 17:37] LABS: URINE AMPHETAMINE SCREEN NEGATIVE (Neg); URINE BARBITUATE SCREEN NEGATIVE (Neg); URINE BENZODIAZEPINES SCREEN NEGATIVE (Neg); URINE CANNABINOID SCREEN NEGATIVE (Neg); URINE COCAINE SCREEN NEGATIVE (Neg); URINE METHADONE SCREEN NEGATIVE (Neg); URINE OPIATE SCREEN NEGATIVE (Neg); URINE PHENCYCLIDINE SCREEN NEGATIVE (Neg)
--- NOTE | 2023-06-22 18:16 | NUR ---
JULIANNE REQ ENERGY CONSERVATION REPRESENTATIVE TO PERFORM GAIT TEST.
--- NOTE | 2023-06-22 19:14 | NUR ---
Gait test performed with patient. Patient ambulated approximately 20 feet total with walker with steady, but weak gait. Patient reports positional dizziness from laying to sitting and sitting to standing. Patient HR 86 and SpO2 95 on RA while walking. When patient connected back to monitor, Sp02 92% on RA and HR 84. Dr Kapoor notified.
[2023-06-22 19:16] VITALS: BP 164/78; PULSE 84; RESP 17; O2SAT 94
[2023-06-22 20:41] VITALS: TEMP 98
[2023-06-22 21:11] LABS: LIPASE 21 U/L (16-77)
[2023-06-22 21:18] LABS: ETHANOL < 10 MG/DL (<10)
[2023-06-23] MEDS ORDERED: VALB80CA PO (21:55)
[2023-06-23] MEDS ORDERED: SERT25TA PO (21:55)
[2023-06-23] MEDS ORDERED: OLAN20TA34 PO (21:55)
[2023-06-23] MEDS ORDERED: BUPR100T15 PO (21:55)
[2023-06-26] MEDS ORDERED: SERT-434 PO (11:09)
[2023-06-26] MEDS ORDERED: VALB60CA PO (11:09)
[2023-06-26] MEDS ORDERED: BUSP10TA10 PO (11:09)
[2023-06-26] MEDS ORDERED: PRED5DRO23 EACHEYE (11:09)
[2023-06-26] MEDS ORDERED: BUDE10.22 INH (11:11)
[2023-06-26] MEDS ORDERED: ALBU18HF2 INH (11:16)
[2023-06-26] MEDS ORDERED: ACET-1995 PO (11:16)
[2023-06-26] MEDS ORDERED: HYDR-3686 PO (11:16)
[2023-06-29] MEDS ORDERED: MECL-302 PO (14:01)
== END 2023-06-22 20:45 | disposition home or self-care (01) ==
LOC: ER 14:58
DX: R53.1 Weakness (principal); E78.00 Pure hypercholesterolemia, unspecified; I10 Essential (primary) hypertension; J44.9 Chronic obstructive pulmonary disease, unspecified; G89.29 Other chronic pain; F31.9 Bipolar disorder, unspecified; F20.9 Schizophrenia, unspecified; Z88.8 Allergy status to other drugs, medicaments and biological substances
CPT/HCPCS: 36415; 71045; 80053; 80305; 80320; 81001; 83690; 83880; 84484; 85025; 93005; 99285; J7030; J7040

== ENCOUNTER 2023-09-12 21:32 | Emergency (ER) | payer MEDICARE, BC, MEDICAID ==
[~2023-09-12] VITALS: Ht 175.3 cm; Wt 125.0 kg
[~2023-09-12 21:32] MED LIST changes: +ACET-1995 PO; -ALBU17AE26 INH; +ALBU18HF2 INH; -BUPR-317 PO; +BUPR100T15 PO; +BUSP10TA10 PO; -BUSP15TA7 PO; +HYDR-3686 PO; -IBUP-1986 PO; -LORA-268 PO; -LORA-269 PO; +MECL-302 PO; -OLAN15TA3 PO; +OLAN20TA34 PO; -PARO-153 PO; -PARO-154 PO; -PRED10TA PO; +PRED5DRO23 EACHEYE; +SERT-434 PO; +SERT25TA PO; -VALB40CA2 PO; +VALB60CA PO
[2023-09-12 21:52] VITALS: TEMP 98.5
[2023-09-12] MEDS ORDERED: PRED20TA PO (22:43)
[2023-09-12 23:12] VITALS: BP 146/86; PULSE 71; RESP 16; O2SAT 96
== END 2023-09-12 23:16 | disposition home or self-care (01) ==
LOC: ER 21:33
DX: M72.2 Plantar fascial fibromatosis (principal); E78.00 Pure hypercholesterolemia, unspecified; I10 Essential (primary) hypertension; J44.9 Chronic obstructive pulmonary disease, unspecified; Z88.8 Allergy status to other drugs, medicaments and biological substances; Z88.5 Allergy status to narcotic agent; Z79.899 Other long term (current) drug therapy; Z98.890 Other specified postprocedural states
CPT/HCPCS: 73630; 99283; L4360

== ENCOUNTER 2023-10-23 15:45 | Emergency (ER) | payer MEDICARE, BC, MEDICAID | END 2023-10-23 16:29 | disposition left against medical advice (07) | LOC: ER 15:46 | DX: M25.519 Pain in unspecified shoulder (principal); Z53.21 Procedure and treatment not carried out due to patient leaving prior to being seen by health care provider ==

== ENCOUNTER 2023-12-08 08:49 | Emergency (ER) | payer MEDICARE, BC, MEDICAID ==
[~2023-12-08] VITALS: Ht 175.3 cm; Wt 102.3 kg
[~2023-12-08 08:49] MED LIST changes: -ACET-1995 PO; +ASPI-1071 PO; -HYDR-3686 PO; +HYDR-3965 PO; -PRED5DRO23 EACHEYE
[2023-12-08 09:03] VITALS: TEMP 98.8
[2023-12-08] MEDS: normal saline 1000ML IV soln IVB ONE (09:47)
[2023-12-08] MEDS: acetaminophen 1,000mg/100ml IV 100 ML IV STA (09:47)
[2023-12-08] MEDS: ondansetron/PF 4mg/2ml inj IV ONE (09:47)
[2023-12-08 09:49] LABS: BASOPHILS % (AUTO) 0.2 % (0-1); EOSINOPHILS # (AUTO) 0.1 X10'3 (0-0.9); EOSINOPHILS % (AUTO) 0.9 % (0-6); HEMATOCRIT 37.4 % (35.0-45.0); HEMOGLOBIN 12.7 g/dl (12.0-16.0); LYMPHOCYTES # (AUTO) 1.2 X10'3 (1.1-4.8); LYMPHOCYTES % (AUTO) 13.4 % (21-51); MEAN CORPUSCULAR HEMOGLOBIN 30.2 PG (27.0-31.0); MEAN CORPUSCULAR HGB CONC 33.9 g/dL (33.0-36.5); MEAN CORPUSCULAR VOLUME 89.2 FL (78-98); MEAN PLATELET VOLUME 7.6 FL (7.4-10.4); MONOCYTES # (AUTO) 0.7 X10'3 (0-0.9); MONOCYTES % (AUTO) 7.3 % (2-12); NEUTROPHILS # (AUTO) 7.1 X10'3 (1.8-7.7); NEUTROPHILS % (AUTO) 78.2 % (42-75); PLATELET COUNT 198 X10'3 (140-440); RED BLOOD COUNT 4.19 X10'6 (4.20-5.60); RED CELL DISTRIBUTION WIDTH 14.2 % (11.5-14.5); WHITE BLOOD COUNT 9.1 X10'3 (4.5-11.0)
[2023-12-08 09:51] LABS: ALANINE AMINOTRANSFERASE 23 U/L (12-78); ALBUMIN 3.3 G/DL (3.4-5.0); ALKALINE PHOSPHATASE 63 IU/L (46-116); ANION GAP 9 (8-16); ASPARTATE AMINO TRANSFERASE 11 U/L (10-37); BILIRUBIN,TOTAL 0.6 MG/DL (0.1-1.0); BLOOD UREA NITROGEN 13 MG/DL (7-18); BUN/CREATININE RATIO 14.6 (10.0-20.0); CALCIUM 8.7 MG/DL (8.5-10.1); CHLORIDE 110 MMOL/L (99-107); CREATININE 0.89 MG/DL (0.40-0.90); GLUCOSE 117 MG/DL (70-104); LIPASE 21 U/L (16-77); POTASSIUM 3.8 MMOL/L (3.5-5.1); SODIUM 144 MMOL/L (135-145); TOTAL CARBON DIOXIDE 25.4 MMOL/L (24-32); TOTAL PROTEIN 6.5 G/DL (6.4-8.2); eCRCL 62 ML/MIN; eGFR 63 ML/MIN
[2023-12-08 10:18] VITALS: BP 119/68; PULSE 78; RESP 18; O2SAT 97
== END 2023-12-08 10:24 | disposition home or self-care (01) ==
LOC: ER 08:49
DX: K42.9 Umbilical hernia without obstruction or gangrene (principal); E78.00 Pure hypercholesterolemia, unspecified; I10 Essential (primary) hypertension; J44.9 Chronic obstructive pulmonary disease, unspecified; Z88.8 Allergy status to other drugs, medicaments and biological substances; Z88.5 Allergy status to narcotic agent; Z79.899 Other long term (current) drug therapy; Z79.82 Long term (current) use of aspirin; Z98.890 Other specified postprocedural states
CPT/HCPCS: 36415; 80053; 83690; 84145; 85025; 96374; 96375; 99284; J0131; J2405; J7030

== ENCOUNTER 2023-12-12 05:06 | Inpatient (IN) | payer BC, MEDICAID ==
[~2023-12-12] VITALS: Ht 175.3 cm; Wt 117.0 kg
[2023-12-12] VITALS (20 sets, daily range): BP systolic 136–163; BP diastolic 76–99; PULSE 68–91; RESP 12–18; TEMP 97.2–98.2; O2SAT 92–100
[2023-12-12 09:21] LABS: BASOPHILS % (AUTO) 0.2 % (0-1); EOSINOPHILS % (AUTO) 0.2 % (0-6); HEMATOCRIT 38.8 % (35.0-45.0); LYMPHOCYTES # (AUTO) 1.1 X10'3 (1.1-4.8); LYMPHOCYTES % (AUTO) 10.2 % (21-51); MEAN CORPUSCULAR HEMOGLOBIN 30.2 PG (27.0-31.0); MEAN CORPUSCULAR HGB CONC 33.5 g/dL (33.0-36.5); MEAN PLATELET VOLUME 7.9 FL (7.4-10.4); MONOCYTES # (AUTO) 0.6 X10'3 (0-0.9); MONOCYTES % (AUTO) 5.5 % (2-12); NEUTROPHILS # (AUTO) 8.9 X10'3 (1.8-7.7); NEUTROPHILS % (AUTO) 83.9 % (42-75); PLATELET COUNT 193 X10'3 (140-440); RED BLOOD COUNT 4.31 X10'6 (4.20-5.60); RED CELL DISTRIBUTION WIDTH 14.9 % (11.5-14.5); WHITE BLOOD COUNT 10.6 X10'3 (4.5-11.0)
[2023-12-12 09:23] LABS: ALANINE AMINOTRANSFERASE 20 U/L (12-78); ALBUMIN 3.4 G/DL (3.4-5.0); ALBUMIN/GLOBULIN RATIO 0.9 (1.1-1.5); ALKALINE PHOSPHATASE 62 IU/L (46-116); ANION GAP 8 (8-16); ASPARTATE AMINO TRANSFERASE 12 U/L (10-37); BILIRUBIN,TOTAL 0.4 MG/DL (0.1-1.0); BLOOD UREA NITROGEN 11 MG/DL (7-18); BUN/CREATININE RATIO 11.1 (10.0-20.0); CALCIUM 8.8 MG/DL (8.5-10.1); CHLORIDE 108 MMOL/L (99-107); CREATININE 0.99 MG/DL (0.40-0.90); GLUCOSE 119 MG/DL (70-104); POTASSIUM 3.9 MMOL/L (3.5-5.1); SODIUM 143 MMOL/L (135-145); TOTAL CARBON DIOXIDE 27.1 MMOL/L (24-32); TOTAL PROTEIN 7.1 G/DL (6.4-8.2); eCRCL 56 ML/MIN; eGFR 56 ML/MIN
[2023-12-12 09:27] LABS: LIPASE 17 U/L (16-77)
[2023-12-12] MEDS: normal saline 1000ml 1,000 ML IV ONE ×2 (10:40→13:33)
[2023-12-12] MEDS: morphine 4 MG/ML inj SYRINge IV ONE (10:52)
[2023-12-12] MEDS: ondansetron/PF 4mg/2ml inj IV ONE (10:54)
[2023-12-12 11:23] LABS: BILIRUBIN,URINE NEGATIVE (Neg); CLARITY,URINE CLOUDY (Clear); COLOR,URINE YELLOW (Yellow); GLUCOSE, URINE NEGATIVE (Neg); KETONES,URINE NEGATIVE (Neg); LEUKOCYTE ESTERASE ,URINE NEGATIVE (Neg); NITRITES, URINE NEGATIVE (Neg); OCCULT BLOOD,URINE MODERATE (Neg); PROTEIN,URINE NEGATIVE (Neg); UROBILINOGEN,URINE 0.2 E.U/dL (0.2-1.0)
[2023-12-12 11:50] LABS: UA COLLECTION TYPE CLN CATCH MIDSTREAM
[2023-12-12 11:51] LABS: SQUAMOUS EPITHELIAL CELL,UR MANY /LPF (FEW)
[2023-12-12 11:52] LABS: BACTERIA,URINE FEW /HPF (Neg); MUCUS STRANDS FEW /LPF (Neg); RBC,URINE 20-50 /HPF (0-2); WBC,URINE NONE SEEN /HPF (0-4)
[2023-12-12] MEDS ORDERED: piperacillin/tazo 4.5gm/100ml 100 ML IV SCH (12:50)
[2023-12-12] MEDS: LORazepam 2 mg/ml vial IV ONE (13:23)
[2023-12-12] MEDS ORDERED: magnesium 4gm in 100ml NS 100 ML IV PRN (13:30)
[2023-12-12] MEDS ORDERED: ondansetron/PF 4mg/2ml inj IV PRN ×2 (13:30→14:45)
[2023-12-12] MEDS ORDERED: potassium Cl 20 mEq SR tablet PO PRN ×2 (13:30)
[2023-12-12] MEDS ORDERED: magnesium 2GM in 50ml NS 50 ML IV PRN (13:30)
[2023-12-12] MEDS ORDERED: albuterol 2.5 MG/3 ML nebule NEB PRN (13:30)
[2023-12-12] MEDS ORDERED: potassium Cl 40MEQ/1/2NS 520ml 520 ML IV PRN (13:30)
[2023-12-12] MEDS: piperacillin/tazo 4.5gm/100ml 100 ML IV ONE (13:33)
[2023-12-12] MEDS ORDERED: BUPIVAcaine/PF 2.5mg/ml (0.25%) 10ml vial ONE (13:54)
[2023-12-12] MEDS ORDERED: BUPIVAcaine 0.5% inj/PF 30 ML ONE ×2 (13:54→13:55)
[2023-12-12] MEDS ORDERED: BUPIVACAINE liposomal/PF 13.3 MG/ML vial IM ONE (13:55)
[2023-12-12] MEDS ORDERED: sugammadex 200mg/2ml injection IV ONE (14:12)
[2023-12-12] MEDS ORDERED: sevoflurane 250ml liquid IH ONE (14:13)
[2023-12-12] MEDS ORDERED: fentaNYL/PF 50MCG/1 ML 2ML syringe ONE (14:24)
[2023-12-12] MEDS ORDERED: dexamethasone sod phosphate 4mg/ml inj. ONE (14:39)
[2023-12-12] MEDS ORDERED: LIDOcaine 2% (20mg/ml) 5ml vial ONE (14:39)
[2023-12-12] MEDS ORDERED: ondansetron/PF 4mg/2ml inj ONE (14:39)
[2023-12-12] MEDS ORDERED: rocuronium 10mg/ml inj IV ONE (14:39)
[2023-12-12] MEDS ORDERED: propofol inj 20 ML IV ONE (14:40)
[2023-12-12] MEDS ORDERED: proCHLORperazine 10 MG/2 ml inj IV PRN (14:45)
[2023-12-12] MEDS: ringers solution, lacted 1,000 ML IV SCH (14:45)
[2023-12-12] MEDS ORDERED: meperidine/PF 25mg/ml syringe IV PRN ×2 (14:45)
[2023-12-12] MEDS: LIDOcaine 1% 30ml preserv. free vial IJ ONE (14:58)
[2023-12-12] MEDS ORDERED: glycopyrrolate 0.2mg/ml inj ONE (15:17)
[2023-12-12] MEDS ORDERED: naloxone 0.4 mg/ml inj IV PRN (15:55)
[2023-12-12] MEDS: morphine 2 MG/ML inj. syringe IV PRN (16:17)
[2023-12-12] MEDS: traMADol 50MG tablet PO PRN (18:39)
[2023-12-12] MEDS ORDERED: hydrALAZINE 20mg/ml inj. IV PRN (19:20)
[2023-12-12] MEDS ORDERED: enoxaparin 40mg/0.4ml syringe SQ SCH (20:00)
[2023-12-12] MEDS: K and/or MAG REPLACEMENT MC SCH (20:00)
[2023-12-12] MEDS: docusate sod 100mg capsule PO SCH (20:44)
[2023-12-12] MEDS: heparin, porcine 5000 units/ml vial SQ SCH (20:47)
[2023-12-13] VITALS (9 sets, daily range): BP systolic 122–133; BP diastolic 61–77; PULSE 71–83; RESP 14–18; TEMP 96.9–98; O2SAT 88–94
[2023-12-13 08:35] LABS: BASOPHILS % (AUTO) 0.2 % (0-1); EOSINOPHILS % (AUTO) 0 % (0-6); HEMATOCRIT 36.4 % (35.0-45.0); HEMOGLOBIN 12.2 g/dl (12.0-16.0); LYMPHOCYTES # (AUTO) 1.5 X10'3 (1.1-4.8); LYMPHOCYTES % (AUTO) 11.5 % (21-51); MEAN CORPUSCULAR HEMOGLOBIN 29.9 PG (27.0-31.0); MEAN CORPUSCULAR HGB CONC 33.4 g/dL (33.0-36.5); MEAN CORPUSCULAR VOLUME 89.5 FL (78-98); MONOCYTES # (AUTO) 1.1 X10'3 (0-0.9); MONOCYTES % (AUTO) 8.1 % (2-12); NEUTROPHILS # (AUTO) 10.7 X10'3 (1.8-7.7); NEUTROPHILS % (AUTO) 80.2 % (42-75); PLATELET COUNT 205 X10'3 (140-440); RED BLOOD COUNT 4.07 X10'6 (4.20-5.60); RED CELL DISTRIBUTION WIDTH 14.6 % (11.5-14.5); WHITE BLOOD COUNT 13.4 X10'3 (4.5-11.0)
[2023-12-13 09:04] LABS: ALANINE AMINOTRANSFERASE 14 U/L (12-78); ALBUMIN 3.1 G/DL (3.4-5.0); ALBUMIN/GLOBULIN RATIO 0.9 (1.1-1.5); ALKALINE PHOSPHATASE 60 IU/L (46-116); ANION GAP 9 (8-16); ASPARTATE AMINO TRANSFERASE 14 U/L (10-37); BILIRUBIN,TOTAL 0.7 MG/DL (0.1-1.0); BLOOD UREA NITROGEN 10 MG/DL (7-18); BUN/CREATININE RATIO 11.5 (10.0-20.0); CALCIUM 8.3 MG/DL (8.5-10.1); CHLORIDE 102 MMOL/L (99-107); CREATININE 0.87 MG/DL (0.40-0.90); GLUCOSE 91 MG/DL (70-104); MAGNESIUM 1.9 MG/DL (1.5-2.4); POTASSIUM 3.6 MMOL/L (3.5-5.1); SODIUM 136 MMOL/L (135-145); TOTAL CARBON DIOXIDE 25.3 MMOL/L (24-32); TOTAL PROTEIN 6.5 G/DL (6.4-8.2); eCRCL 64 ML/MIN; eGFR 65 ML/MIN
[2023-12-13] MEDS: LORazepam 1 MG tablet PO PRN (11:13)
[2023-12-13] MEDS: magnesium hydroxide 30ml (MOM) UD suspension PO ONE (17:13)
[2023-12-13] MEDS ORDERED: traZODone 50mg tablet PO PRN (19:20)
[2023-12-13] MEDS ORDERED: albuterol 2.5 MG/3 ML nebule NEB PRN (19:20)
[2023-12-13] MEDS: buPROPion SR 100mg tab PO SCH (20:00)
[2023-12-13] MEDS: busPIRone 5mg tablet PO SCH (20:00)
[2023-12-13] MEDS: budesonide 0.5mg/2ml UD nebule IH SCH (20:25)
[2023-12-13] MEDS: ipratropium/albuterol 3ml nebule NEB PRN (20:25)
[2023-12-13] MEDS: atorvastatin 10mg tablet PO SCH (20:49)
[2023-12-13] MEDS: olanzapine 10mg tablet PO SCH (20:49)
[2023-12-13] MEDS: VALBENAZINE TOSYLATE 60 MG PO SCH (21:00)
[2023-12-14] VITALS (14 sets, daily range): BP systolic 127–152; BP diastolic 62–71; PULSE 75–87; RESP 16–24; TEMP 97.5–99.3; O2SAT 91–96
[2023-12-14 03:19] LABS: BASOPHILS % (AUTO) 0.3 % (0-1); EOSINOPHILS # (AUTO) 0.1 X10'3 (0-0.9); EOSINOPHILS % (AUTO) 1.2 % (0-6); HEMATOCRIT 35.7 % (35.0-45.0); HEMOGLOBIN 11.8 g/dl (12.0-16.0); LYMPHOCYTES # (AUTO) 1.9 X10'3 (1.1-4.8); LYMPHOCYTES % (AUTO) 19.4 % (21-51); MEAN CORPUSCULAR HEMOGLOBIN 29.9 PG (27.0-31.0); MEAN CORPUSCULAR HGB CONC 33.1 g/dL (33.0-36.5); MEAN CORPUSCULAR VOLUME 90.4 FL (78-98); MEAN PLATELET VOLUME 8.1 FL (7.4-10.4); MONOCYTES # (AUTO) 0.9 X10'3 (0-0.9); NEUTROPHILS # (AUTO) 6.8 X10'3 (1.8-7.7); NEUTROPHILS % (AUTO) 70.1 % (42-75); PLATELET COUNT 191 X10'3 (140-440); RED BLOOD COUNT 3.95 X10'6 (4.20-5.60); RED CELL DISTRIBUTION WIDTH 14.6 % (11.5-14.5); WHITE BLOOD COUNT 9.7 X10'3 (4.5-11.0)
[2023-12-14] MEDS: albuterol 2.5 MG/3 ML nebule NEB SCH (03:27)
[2023-12-14 03:43] LABS: ALANINE AMINOTRANSFERASE 11 U/L (12-78); ALBUMIN 2.8 G/DL (3.4-5.0); ALBUMIN/GLOBULIN RATIO 0.8 (1.1-1.5); ALKALINE PHOSPHATASE 56 IU/L (46-116); ANION GAP 9 (8-16); ASPARTATE AMINO TRANSFERASE 18 U/L (10-37); BILIRUBIN,TOTAL 0.7 MG/DL (0.1-1.0); BLOOD UREA NITROGEN 11 MG/DL (7-18); BUN/CREATININE RATIO 13.4 (10.0-20.0); CALCIUM 8.2 MG/DL (8.5-10.1); CHLORIDE 104 MMOL/L (99-107); CREATININE 0.82 MG/DL (0.40-0.90); GLUCOSE 98 MG/DL (70-104); MAGNESIUM 2.2 MG/DL (1.5-2.4); POTASSIUM 3.4 MMOL/L (3.5-5.1); SODIUM 139 MMOL/L (135-145); TOTAL CARBON DIOXIDE 26.5 MMOL/L (24-32); TOTAL PROTEIN 6.1 G/DL (6.4-8.2); eCRCL 68 ML/MIN; eGFR 69 ML/MIN
[2023-12-14] MEDS: sertraline 50mg tablet PO SCH (07:20)
[2023-12-14] MEDS: aspirin 81mg, enteric-coated 1 TAB TABLET.DR PO SCH (07:26)
[2023-12-14] MEDS ORDERED: sertraline 50mg tablet PO SCH (08:00)
[2023-12-14] MEDS: mag hydrox/Alum hydrox/simeth 30ml oral suspension PO PRN (19:01)
[2023-12-14] MEDS: magnesium hydroxide 30ml (MOM) UD suspension PO SCH (19:54)
[2023-12-15] VITALS (11 sets, daily range): BP systolic 113–176; BP diastolic 55–84; PULSE 73–89; RESP 16–20; TEMP 97.2–99.2; O2SAT 91–100
[2023-12-15 06:12] LABS: BASOPHILS % (AUTO) 0.3 % (0-1); EOSINOPHILS # (AUTO) 0.1 X10'3 (0-0.9); EOSINOPHILS % (AUTO) 1.5 % (0-6); HEMOGLOBIN 11.8 g/dl (12.0-16.0); LYMPHOCYTES # (AUTO) 1.4 X10'3 (1.1-4.8); LYMPHOCYTES % (AUTO) 18.4 % (21-51); MEAN CORPUSCULAR HEMOGLOBIN 30.3 PG (27.0-31.0); MEAN CORPUSCULAR HGB CONC 33.8 g/dL (33.0-36.5); MEAN CORPUSCULAR VOLUME 89.7 FL (78-98); MONOCYTES # (AUTO) 0.6 X10'3 (0-0.9); MONOCYTES % (AUTO) 8.1 % (2-12); NEUTROPHILS # (AUTO) 5.7 X10'3 (1.8-7.7); NEUTROPHILS % (AUTO) 71.7 % (42-75); PLATELET COUNT 203 X10'3 (140-440); RED CELL DISTRIBUTION WIDTH 14.8 % (11.5-14.5); WHITE BLOOD COUNT 7.9 X10'3 (4.5-11.0)
[2023-12-15 06:27] LABS: ALANINE AMINOTRANSFERASE 15 U/L (12-78); ALBUMIN 2.8 G/DL (3.4-5.0); ALBUMIN/GLOBULIN RATIO 0.8 (1.1-1.5); ALKALINE PHOSPHATASE 59 IU/L (46-116); ANION GAP 9 (8-16); ASPARTATE AMINO TRANSFERASE 15 U/L (10-37); BILIRUBIN,TOTAL 0.6 MG/DL (0.1-1.0); BLOOD UREA NITROGEN 10 MG/DL (7-18); BUN/CREATININE RATIO 13.7 (10.0-20.0); CALCIUM 8.2 MG/DL (8.5-10.1); CHLORIDE 104 MMOL/L (99-107); CREATININE 0.73 MG/DL (0.40-0.90); GLUCOSE 91 MG/DL (70-104); MAGNESIUM 2.2 MG/DL (1.5-2.4); POTASSIUM 3.5 MMOL/L (3.5-5.1); SODIUM 141 MMOL/L (135-145); TOTAL CARBON DIOXIDE 27.6 MMOL/L (24-32); TOTAL PROTEIN 6.3 G/DL (6.4-8.2); eCRCL 76 ML/MIN; eGFR 79 ML/MIN
[2023-12-16] VITALS (12 sets, daily range): BP systolic 103–145; BP diastolic 50–64; PULSE 78–89; RESP 15–20; TEMP 97.9–99.2; O2SAT 91–98
[2023-12-16 06:15] LABS: ALANINE AMINOTRANSFERASE 13 U/L (12-78); ALBUMIN 2.7 G/DL (3.4-5.0); ALBUMIN/GLOBULIN RATIO 0.8 (1.1-1.5); ALKALINE PHOSPHATASE 58 IU/L (46-116); ANION GAP 8 (8-16); ASPARTATE AMINO TRANSFERASE 12 U/L (10-37); BILIRUBIN,TOTAL 0.6 MG/DL (0.1-1.0); BLOOD UREA NITROGEN 10 MG/DL (7-18); BUN/CREATININE RATIO 12.2 (10.0-20.0); CALCIUM 8.3 MG/DL (8.5-10.1); CHLORIDE 105 MMOL/L (99-107); CREATININE 0.82 MG/DL (0.40-0.90); GLUCOSE 104 MG/DL (70-104); MAGNESIUM 2.2 MG/DL (1.5-2.4); POTASSIUM 3.7 MMOL/L (3.5-5.1); SODIUM 140 MMOL/L (135-145); TOTAL CARBON DIOXIDE 26.7 MMOL/L (24-32); TOTAL PROTEIN 6.1 G/DL (6.4-8.2); eCRCL 68 ML/MIN; eGFR 69 ML/MIN
[2023-12-16 06:22] LABS: BASOPHILS % (AUTO) 0.2 % (0-1); EOSINOPHILS # (AUTO) 0.2 X10'3 (0-0.9); EOSINOPHILS % (AUTO) 2.7 % (0-6); HEMATOCRIT 34.3 % (35.0-45.0); HEMOGLOBIN 11.5 g/dl (12.0-16.0); LYMPHOCYTES # (AUTO) 1.3 X10'3 (1.1-4.8); LYMPHOCYTES % (AUTO) 18.1 % (21-51); MEAN CORPUSCULAR HEMOGLOBIN 30.2 PG (27.0-31.0); MEAN CORPUSCULAR HGB CONC 33.6 g/dL (33.0-36.5); MEAN CORPUSCULAR VOLUME 89.8 FL (78-98); MEAN PLATELET VOLUME 8.1 FL (7.4-10.4); MONOCYTES # (AUTO) 0.5 X10'3 (0-0.9); MONOCYTES % (AUTO) 7.7 % (2-12); NEUTROPHILS % (AUTO) 71.3 % (42-75); PLATELET COUNT 218 X10'3 (140-440); RED BLOOD COUNT 3.82 X10'6 (4.20-5.60); RED CELL DISTRIBUTION WIDTH 14.5 % (11.5-14.5); WHITE BLOOD COUNT 7.1 X10'3 (4.5-11.0)
[2023-12-17] VITALS (8 sets, daily range): BP systolic 116–134; BP diastolic 44–52; PULSE 70–80; RESP 17–24; TEMP 97.6–98.2; O2SAT 91–97
[2023-12-17 06:08] LABS: BASOPHILS % (AUTO) 0.3 % (0-1); EOSINOPHILS # (AUTO) 0.2 X10'3 (0-0.9); EOSINOPHILS % (AUTO) 2.4 % (0-6); HEMATOCRIT 33.5 % (35.0-45.0); HEMOGLOBIN 11.5 g/dl (12.0-16.0); LYMPHOCYTES # (AUTO) 1.6 X10'3 (1.1-4.8); LYMPHOCYTES % (AUTO) 23.1 % (21-51); MEAN CORPUSCULAR HEMOGLOBIN 30.5 PG (27.0-31.0); MEAN CORPUSCULAR HGB CONC 34.3 g/dL (33.0-36.5); MEAN PLATELET VOLUME 7.8 FL (7.4-10.4); MONOCYTES # (AUTO) 0.5 X10'3 (0-0.9); MONOCYTES % (AUTO) 7.9 % (2-12); NEUTROPHILS # (AUTO) 4.5 X10'3 (1.8-7.7); NEUTROPHILS % (AUTO) 66.3 % (42-75); PLATELET COUNT 230 X10'3 (140-440); RED BLOOD COUNT 3.76 X10'6 (4.20-5.60); RED CELL DISTRIBUTION WIDTH 14.5 % (11.5-14.5); WHITE BLOOD COUNT 6.8 X10'3 (4.5-11.0)
[2023-12-17 06:16] LABS: ALANINE AMINOTRANSFERASE 13 U/L (12-78); ALBUMIN 2.6 G/DL (3.4-5.0); ALBUMIN/GLOBULIN RATIO 0.7 (1.1-1.5); ALKALINE PHOSPHATASE 57 IU/L (46-116); ANION GAP 5 (8-16); ASPARTATE AMINO TRANSFERASE 14 U/L (10-37); BILIRUBIN,TOTAL 0.6 MG/DL (0.1-1.0); BLOOD UREA NITROGEN 12 MG/DL (7-18); BUN/CREATININE RATIO 14.5 (10.0-20.0); CALCIUM 8.1 MG/DL (8.5-10.1); CHLORIDE 105 MMOL/L (99-107); CREATININE 0.83 MG/DL (0.40-0.90); GLUCOSE 96 MG/DL (70-104); MAGNESIUM 2.2 MG/DL (1.5-2.4); POTASSIUM 3.7 MMOL/L (3.5-5.1); SODIUM 137 MMOL/L (135-145); TOTAL CARBON DIOXIDE 27.3 MMOL/L (24-32); TOTAL PROTEIN 6.2 G/DL (6.4-8.2); eCRCL 67 ML/MIN; eGFR 68 ML/MIN
[2023-12-17] MEDS: acetaminophen 325mg tablet PO PRN (07:04)
== END 2023-12-17 15:10 | DRG 354 ==
LOC: ER 05:06 → UNDOADMIN 13:28 → SUR 3N 13:28
PROVIDERS: ADMIT Family Medicine; ATTEND Family Medicine
PROC: 8E0W4CZ Robotic Assisted Procedure of Trunk Region, Percutaneous Endoscopic Approach (ICD-10-PCS; 2023-12-12)
PROC: 3E0T3BZ Introduction of Anesthetic Agent into Peripheral Nerves and Plexi, Percutaneous Approach (ICD-10-PCS; 2023-12-12)
PROC: 0D9670Z Drainage of Stomach with Drainage Device, Via Natural or Artificial Opening (ICD-10-PCS; 2023-12-12)
PROC: 0WUF4JZ Supplement Abdominal Wall with Synthetic Substitute, Percutaneous Endoscopic Approach (ICD-10-PCS; principal; 2023-12-12 14:13)
DX: K43.6 Other and unspecified ventral hernia with obstruction, without gangrene (principal); N13.30 Unspecified hydronephrosis; F25.9 Schizoaffective disorder, unspecified; J44.9 Chronic obstructive pulmonary disease, unspecified; R33.9 Retention of urine, unspecified; I25.10 Atherosclerotic heart disease of native coronary artery without angina pectoris; I10 Essential (primary) hypertension; F41.9 Anxiety disorder, unspecified; G89.29 Other chronic pain; M54.9 Dorsalgia, unspecified; D72.829 Elevated white blood cell count, unspecified; F32.A Depression, unspecified; E78.00 Pure hypercholesterolemia, unspecified; Z88.8 Allergy status to other drugs, medicaments and biological substances; Z88.5 Allergy status to narcotic agent; Z79.82 Long term (current) use of aspirin; Z90.49 Acquired absence of other specified parts of digestive tract; Z79.899 Other long term (current) drug therapy; Z80.3 Family history of malignant neoplasm of breast
CPT/HCPCS: 36415; 74176; 80053; 81001; 83605; 83690; 83735; 84484; 85025; 87081; 93005; 94640; 94760; 96374; 96375; 97116; 97161; 97530; 99285; A4215; A4314; A4615; A4618; C1758; C1781; C9290; G0378; J1100; J1644; J2060; J2270; J2405; J2543; J2704; J3010; J3490; J7030; S0020